=== PATIENT | male | born 1950 | race Caucasian/White ===

== ENCOUNTER 2017-11-26 17:23 | Inpatient (IN) ==
[2017-11-26] MEDS ORDERED: Morphine Inj 4 MG/ML Vial IV.PUSH ONE (17:36)
[2017-11-26 17:45] LABS: Baso # (Auto) 0.1 th/mm3 (0.0-0.2); Baso % (Auto) 1.6 % (0.0-2.0); Eos # (Auto) 0.1 th/mm3 (0.0-0.4); Eos % (Auto) 2.4 % (0.0-4.0); Hematocrit 48.1 % (39.0-51.0); Hemoglobin 16.6 gm/dL (13.0-17.0); Lymph # (Auto) 2.5 th/mm3 (1.0-4.8); Lymph % (Auto) 39.9 % (9.0-44.0); Mean Corpuscular HGB Conc 34.5 % (32.0-36.0); Mean Corpuscular Hemoglobin 32.6 pg (27.0-34.0); Mean Corpuscular Volume 94.5 fL (80.0-100.0); Mean Platelet Volume 9.4 fL (7.0-11.0); Mono # (Auto) 0.7 th/mm3 (0.0-0.9); Mono % (Auto) 11.2 % (0.0-8.0); Neut # (Auto) 2.8 th/mm3 (1.8-7.7); Neut % (Auto) 44.9 % (16.0-70.0); Platelet Count 202 th/mm3 (150-450); Red Blood Count 5.09 mil/mm3 (4.50-5.90); Red Cell Distribution Width 12.6 % (11.6-17.2); White Blood Count 6.2 th/mm3 (4.0-11.0)
--- NOTE | 2017-11-26 17:57 | XR ---
EXAM DATE: 11/26/2017 5:36 PM EDT AGE/SEX: 67 years / Male INDICATIONS: Chest pain and dyaphoresis with history of CABG. CLINICAL DATA: This is the patient's initial encounter. Patient reports that signs and symptoms have been present for 1 day and indicates a pain score of 9/10. MEDICAL/SURGICAL HISTORY: Cardiovascular disease. CABG. COMPARISON: [facility], CTA THORACIC ABDOMINAL AORTA W 3D RECON, 04/24/2017. . FINDINGS: Mild, diffuse chronic appearing interstitial opacities involving both lungs. No lobar consolidation. No pleural effusion. No pneumothorax. Heart size stable, mildly enlarged. Patient has had previous median sternotomy. Tortuous thoracic aor ta. CONCLUSION: No acute infiltrate seen. Mild, chronic appearing interstitial opacities and mild compensated cardiom egaly. Electronically signed by: Rocky Ambrose MD 11/26/2017 5:55 PM EDT
[2017-11-26 17:58] LABS: Chloride 106 meq/L (98-107); Potassium 3.4 meq/L (3.5-5.1); Sodium 145 meq/L (136-145)
[2017-11-26 18:02] LABS: Calcium 9.1 mg/dL (8.5-10.1)
[2017-11-26 18:03] LABS: Albumin 4.2 g/dL (3.4-5.0); Anion Gap 11 meq/L (5-15); Blood Urea Nitrogen 9 mg/dL (7-18); Carbon Dioxide 27.7 meq/L (21.0-32.0); Glucose,Random 88 mg/dL (74-106); Lipase 735 U/L (73-393)
[2017-11-26 18:04] LABS: Activated Partial Thrombo Time 25.2 sec (24.3-30.1); Prothrombin Time 10.4 sec (9.8-11.6)
[2017-11-26 18:05] LABS: Alanine Aminotransferase 32 U/L (12-78); Aspartate Aminotransferase 37 U/L (15-37)
[2017-11-26 18:06] LABS: Glomerular Filtration Rate 77 mL/min (>89)
[2017-11-26 18:07] LABS: Total Protein 8.3 g/dL (6.4-8.2)
[2017-11-26 18:08] LABS: Alkaline Phosphatase 68 U/L (45-117); Creatine Kinase 117 U/L (39-308)
[2017-11-26 18:21] LABS: Creatine Kinase MB 1.1 ng/mL (0.5-3.6)
[2017-11-26] MEDS ORDERED: Metoprolol Inj 5 MG/5 ML Vial IV.PUSH ONE ×2 (18:38→19:05)
--- NOTE | 2017-11-26 18:40 | ED ---
HPI General Chief complaint: Chest Pain Stated complaint: chest pain Time Seen by Provider: 11/26/17 17:30 Source: patient Mode of arrival: ambulatory Limitations: no limitations History of Present Illness HPI narrative: Patient is a 67-year-old male who comes in complaining of chest pain. Says the pain is in his upper abdomen and the left side. He says this started about 30 minutes prior to arrival. He was sitting at home when this started. He says he took a dose of nitro with some improvement of his symptoms. He says when the symptoms started, he felt a little short of breath. He denies nausea or vomiting. He has history of CABG and stenting. He denies any leg swelling or pain. Severity is moderate. Related Data Home Medications Medication Instructions Recorded Confirmed apixaban [Eliquis] 2.5 mg PO BID 09/05/17 11/26/17 aspirin [Aspir-81] 81 mg PO DAILY 11/26/17 11/26/17 carvedilol 3.125 mg PO BID 11/26/17 11/26/17 clopidogrel [Plavix] 75 mg PO DAILY 11/26/17 11/26/17 diltiazem HCl 120 mg PO DAILY 11/26/17 11/26/17 Allergies Allergy/AdvReac Type Severity Reaction Status Date / Time No Known Allergies Allergy Unknown NONE Uncoded 11/26/17 17:36 Review of Systems ROS: all other systems reviewed are negative Constitutional Denies chills and Denies fever(s) ENT Denies dizziness Cardiovascular Reports chest pain Respiratory Denies cough Gastrointestinal Denies nausea and Denies vomiting Musculoskeletal Denies myalgias and Denies arthralgias Integumentary/Breasts Denies rash and Denies wounds Neurologic Denies focal weakness and Denies numbness [facility] Medical History Medical History Bypass graft stenosis (Acute) Social History Social History Substance History: No History of Abuse Second Hand Smoke Exposure: No Smoking Status: Never smoker How Often Do You Have a Drink Containing Alcohol: 2 to 4 times a month Recent Out of Country Travel within the Last 8 Weeks: No Immunization History Tetanus Immunization: Unsure Hx Influenza Vaccine This Season: No Exam Narrative Exam Narrative: GENERAL: Awake and alert, no acute distress. SKIN: Diaphoretic, no evidence of wounds or infection. HEAD: Atraumatic. Normocephalic. EYES: Pupils equal and round. No scleral icterus. ENT: Mucous membranes pink and moist. NECK: Trachea midline. No JVD. CARDIOVASCULAR: Regular rate and rhythm. No murmur appreciated. RESPIRATORY: No accessory muscle use. Clear to auscultation. Breath sounds equal bilaterally. GASTROINTESTINAL: Abdomen soft, non-tender, nondistended. MUSCULOSKELETAL: No obvious deformities. No clubbing. No cyanosis. No edema. NEUROLOGICAL: Awake and alert. No obvious cranial nerve deficits. Motor grossly within normal limits. Normal speech. PSYCHIATRIC: Appropriate mood and affect; insight and judgment normal. Course Initial Documented Vital Signs Blood Pressure 181/108 H 11/26/17 17:30 Last Documented Vital Signs Temperature 97.7 F 11/26/17 17:34 Pulse Rate 87 11/26/17 18:26 Respiratory Rate 18 11/26/17 18:26 Blood Pressure 176/105 H 11/26/17 18:26 Pulse Oximetry 97 11/26/17 18:26 Medical Decision Making [facility] Narrative Medical decision making narrative: Patient is a 67-year-old male with extensive cardiac history, who comes in complaining of chest pain. IV established, labs sent. Patient connected to the threat monitoring analyst. Labs show an elevated lipase. First troponin is negative. Patient given morphine and aspirin. He is on Eliquis. He is not currently having any nausea or vomiting. Patient will be admitted for ACS rule out and management of elevated lipase. Medical Screen Exam Complete: Yes Emergency Medical Condition: Yes Differential Diagnosis Differential Diagnosis: ACS versus pancreatitis versus cholecystitis Medical Records Medical records reviewed: Yes I reviewed the patient's medical records. Lab Data Lab results reviewed: Yes I reviewed the patient's lab results. Result diagrams: 11/26/17 17:30 11/26/17 17:30 Lab Results 11/26/17 11/26/17 11/26/17 Range/Units 17:30 17:30 17:30 CBC w Diff Auto diff final WBC 6.2 (4.0-11.0) th/mm3 RBC 5.09 (4.50-5.90) mil/mm3 Hgb 16.6 (13.0-17.0) gm/dL Hct 48.1 (39.0-51.0) % MCV 94.5 (80.0-100.0) fL MCH 32.6 (27.0-34.0) pg MCHC 34.5 (32.0-36.0) % RDW 12.6 (11.6-17.2) % Plt Count 202 (150-450) th/mm3 MPV 9.4 (7.0-11.0) fL Neut % (Auto) 44.9 (16.0-70.0) % Lymph % (Auto) 39.9 (9.0-44.0) % [place] % (Auto) 11.2 H (0.0-8.0) % Eos % (Auto) 2.4 (0.0-4.0) % Baso % (Auto) 1.6 (0.0-2.0) % Neut # (Auto) 2.8 (1.8-7.7) th/mm3 Lymph # (Auto) 2.5 (1.0-4.8) th/mm3 [place] # (Auto) 0.7 (0.0-0.9) th/mm3 Eos # (Auto) 0.1 (0.0-0.4) th/mm3 Baso # (Auto) 0.1 (0.0-0.2) th/mm3 WBC Differential . Differential Comment . PT 10.4 (9.8-11.6) sec INR 1.0 Ratio APTT 25.2 (24.3-30.1) sec Sodium 145 (136-145) meq/L Potassium 3.4 L (3.5-5.1) meq/L Chloride 106 (98-107) meq/L Carbon Dioxide 27.7 (21.0-32.0) meq/L Anion Gap 11 (5-15) meq/L BUN 9 (7-18) mg/dL Creatinine 0.97 (0.60-1.30) mg/dL Estimated GFR 77 L (>89) mL/min Random Glucose 88 (74-106) mg/dL Calcium 9.1 (8.5-10.1) mg/dL Total Bilirubin 0.5 (0.2-1.0) mg/dL Direct Bilirubin 0.2 (0.0-0.2) mg/dL Indirect Bilirubin 0.3 (0.0-0.8) mg/dL AST 37 (15-37) U/L ALT 32 (12-78) U/L Alkaline Phosphatase 68 (45-117) U/L Total Creatine Kinase 117 (39-308) U/L CK-MB (CK-2) 1.1 (0.5-3.6) ng/mL Troponin I Less than 0.02 L (0.02-0.05) ng/mL B-Natriuretic Peptide (0-100) pg/mL Total Protein 8.3 H (6.4-8.2) g/dL Albumin 4.2 (3.4-5.0) g/dL Lipase 735 H (73-393) U/L 11/26/17 Range/Units 17:30 CBC w Diff WBC (4.0-11.0) th/mm3 RBC (4.50-5.90) mil/mm3 Hgb (13.0-17.0) gm/dL Hct (39.0-51.0) % MCV (80.0-100.0) fL MCH (27.0-34.0) pg MCHC (32.0-36.0) % RDW (11.6-17.2) % Plt Count (150-450) th/mm3 MPV (7.0-11.0) fL Neut % (Auto) (16.0-70.0) % Lymph % (Auto) (9.0-44.0) % [place] % (Auto) (0.0-8.0) % Eos % (Auto) (0.0-4.0) % Baso % (Auto) (0.0-2.0) % Neut # (Auto) (1.8-7.7) th/mm3 Lymph # (Auto) (1.0-4.8) th/mm3 [place] # (Auto) (0.0-0.9) th/mm3 Eos # (Auto) (0.0-0.4) th/mm3 Baso # (Auto) (0.0-0.2) th/mm3 WBC Differential Differential Comment PT (9.8-11.6) sec INR Ratio APTT (24.3-30.1) sec Sodium (136-145) meq/L Potassium (3.5-5.1) meq/L Chloride (98-107) meq/L Carbon Dioxide (21.0-32.0) meq/L Anion Gap (5-15) meq/L BUN (7-18) mg/dL Creatinine (0.60-1.30) mg/dL Estimated GFR (>89) mL/min Random Glucose (74-106) mg/dL Calcium (8.5-10.1) mg/dL Total Bilirubin (0.2-1.0) mg/dL Direct Bilirubin (0.0-0.2) mg/dL Indirect Bilirubin (0.0-0.8) mg/dL AST (15-37) U/L ALT (12-78) U/L Alkaline Phosphatase (45-117) U/L Total Creatine Kinase (39-308) U/L CK-MB (CK-2) (0.5-3.6) ng/mL Troponin I (0.02-0.05) ng/mL B-Natriuretic Peptide 103 H (0-100) pg/mL Total Protein (6.4-8.2) g/dL Albumin (3.4-5.0) g/dL Lipase (73-393) U/L Imaging Data Radiologist's impression: Chest X-Ray 11/26/17 17:36 CONCLUSION: No acute infiltrate seen. Mild, chronic appearing interstitial opacities and mild compensated cardiomegaly. ECG Data EKG Prior to Arrival: No Attestation: I personally reviewed and interpreted this ECG as follows: Interpretation: ECG shows atrial fibrillation at a rate of 93, no ST elevation or depression Discharge Plan Physicians Team ED Provider: Makeda Fan Primary Care Provider: UNKNOWN, Rxs /Orders / Referrals /Forms Prescriptions: No Action clopidogrel [Plavix] 75 mg Tablet 75 mg PO DAILY RF: 0 aspirin [Aspir-81] 81 mg Tablet,Delayed Release (Dr/Ec) 81 mg PO DAILY RF: 0 carvedilol 3.125 mg Tablet 3.125 mg PO BID RF: 0 diltiazem HCl 120 mg Tablet Extended Release 24 Hr 120 mg PO DAILY RF: 0 apixaban [Eliquis] 5 mg Tablet 2.5 mg PO BID RF: 0 Discharge Interventions Interventions: Vital Signs Last Done: 11/26/17 17:36 Status ED Status: Admitted Patient
[2017-11-26] MEDS ORDERED: Morphine Inj 4 MG/ML Vial IV.PUSH PRN ×2 (18:55)
[2017-11-26] MEDS: Sod Chloride 0.9% Inj 1,000 ML IV.CONT SCH (18:58)
[2017-11-26] MEDS ORDERED: hydrALAZINE HCl Inj 20 MG/ML Vial IV.PUSH ONE (21:18)
[2017-11-26 23:03] LABS: Creatine Kinase 98 U/L (39-308)
[2017-11-27] MEDS: Sod Chloride 0.9% Inj 1,000 ML IV.CONT SCH (07:00)
[2017-11-27 07:09] LABS: Baso % (Auto) 0.2 % (0.0-2.0); Eos % (Auto) 0.3 % (0.0-4.0); Hemoglobin 15.5 gm/dL (13.0-17.0); Lymph # (Auto) 0.5 th/mm3 (1.0-4.8); Mean Corpuscular HGB Conc 34.4 % (32.0-36.0); Mean Corpuscular Hemoglobin 32.5 pg (27.0-34.0); Mean Corpuscular Volume 94.6 fL (80.0-100.0); Mean Platelet Volume 9.8 fL (7.0-11.0); Mono # (Auto) 0.7 th/mm3 (0.0-0.9); Neut # (Auto) 9.1 th/mm3 (1.8-7.7); Neut % (Auto) 87.5 % (16.0-70.0); Platelet Count 164 th/mm3 (150-450); Red Blood Count 4.76 mil/mm3 (4.50-5.90); Red Cell Distribution Width 12.7 % (11.6-17.2); White Blood Count 10.3 th/mm3 (4.0-11.0)
[2017-11-27 07:26] LABS: Chloride 106 meq/L (98-107); Potassium 3.5 meq/L (3.5-5.1); Sodium 140 meq/L (136-145)
[2017-11-27 07:47] LABS: Alanine Aminotransferase 38 U/L (12-78); Albumin 3.6 g/dL (3.4-5.0); Alkaline Phosphatase 72 U/L (45-117); Anion Gap 10 meq/L (5-15); Aspartate Aminotransferase 32 U/L (15-37); Blood Urea Nitrogen 7 mg/dL (7-18); Calcium 8.1 mg/dL (8.5-10.1); Carbon Dioxide 23.6 meq/L (21.0-32.0); Glomerular Filtration Rate Greater Than 89 mL/min (>89); Glucose,Random 117 mg/dL (74-106); Lipase 159 U/L (73-393); Total Protein 7.1 g/dL (6.4-8.2)
[2017-11-27 07:52] LABS: Creatine Kinase 63 U/L (39-308)
[2017-11-27] MEDS ORDERED: dilTIAZem CD 120 MG Capsule PO SCH (09:00)
--- NOTE | 2017-11-27 09:35 | P.HP ---
History of Present Illness Primary Care Physician: UNKNOWN Chief Complaint: Chest pain History of Present Illness: This is a 67-year-old male patient with a known medical history of atrial fibrillation on Eliquis who presented to the ED with complaints of chest pain. Patient states that yesterday while at rest he developed a midepigastric abdominal pain that radiated to his left side. He states that the pain lasted roughly an hour and given IV morphine in the ED. He is unable to characterize the pain, just states that the pain is the worst pain is ever had in his life. He does have an extensive cardiac history with CABG as well as cardiac stents. He states that his last stress test was over 10 years ago. A cardiac catheterization is noted in March of this year and at that time post bare- metal stent to the proximal mid LAD. Has been on Eliquis as well as Plavix for history of cardiac stents and atrial fibrillation. It should be noted at that time of hospitalization in March of this year he also complained of abdominal pain. A gallbladder ultrasound as well as a HIDA scan was done, at that time a cholecystectomy deferred by general surgery. Patient denies any recent fevers, chills, cough, headache, shortness of breath, nausea, vomiting, diarrhea or dysuria. He does follow with Dr. Kim, cardiology in the outpatient setting, states that he has recently been been on Losartan but has been discontinued due to recall. - Diagnosis (1) Atypical chest pain Inpatient Certification: I certify that the inpatient services were ordered in accordance with Medicare regulations governing the order. This includes certification that hospital inpatient services are reasonable and necessary and in the case of services not specified as inpatient-only under 42 CFR 419.22(n), that they are appropriately provided as inpatient services in accordance to with the 2-midnight benchmark under 43 CFR 412.3(e) Estimated Total Length of Stay (Days): 3 Plans for Post Hospital Care: Home Review of Systems All other systems reviewed negative except as stated in HPI PMFSH - History History Provided By: Patient - Medical History Medical History: Medical History (Last Reviewed 11/27/17 @ 10:13 by Makeda Lopez) Bypass graft stenosis - Surgical History Surgical History: Surgical History (Last Reviewed 11/27/17 @ 10:13 by Makeda Lopez) Hx of CABG - Family History Family History: Family History (Last Updated 11/27/17 @ 10:13 by Makeda Lopez) Other Family history in first degree relatives is unremarkable - Tobacco History Second Hand Smoke Exposure: No Smoking Status: Never smoker - Alcohol History How Often Do You Have a Drink Containing Alcohol: 2 to 3 times a week - Substance Use History Substance History: No History of Abuse - Travel History Recent Travel Out of the Country Within the Last 8 Weeks: No - Immunization History Tetanus Immunization: Unsure Hx Influenza Vaccine This Season: No Medications and Allergies Active Medications: Active Medications Al Hydroxide/Mg Hydroxide (Milk Of [place]) 30 ml PO Q12H PRN PRN Reason: Mild Constipation Apixaban (Eliquis) 2.5 mg PO BID [facility] Aspirin (Aspirin) 325 mg PO DAILY [facility] Carvedilol (Coreg) 3.125 mg PO BID [facility] Clopidogrel Bisulfate (Plavix) 75 mg PO DAILY [facility] Diltiazem HCl (Cardizem Cd 24hr) 120 mg PO DAILY [facility] Sodium Chloride (Ns Inj) 1,000 mls @ 100 mls/hr IV.CONT .Q10H [facility] Last Admin: 11/27/17 07:00 Dose: 100 mls/hr Miscellaneous (Pill Splitter) 1 each OTHER UNSCH [facility] Last Admin: 11/26/17 21:09 Dose: 1 each Morphine Sulfate (Morphine Inj) 2 mg IV.PUSH Q4H PRN PRN Reason: Pain 3 to 6 Last Admin: 11/26/17 23:43 Dose: 2 mg Morphine Sulfate (Morphine Inj) 4 mg IV.PUSH Q4H PRN PRN Reason: Pain 7 to 10 Last Admin: 11/27/17 04:45 Dose: 4 mg Nitroglycerin (Nitrostat Sl) 0.4 mg SL Q5M PRN PRN Reason: CHEST PAIN Ondansetron HCl (Zofran Inj) 4 mg IV.PUSH Q6H PRN PRN Reason: NAUSEA OR VOMITING Sodium Chloride (Ns Flush) 2 ml IV.FLUSH UNSCH PRN PRN Reason: FLUSH AFTER USING IV ACCESS Last Admin: 11/26/17 17:44 Dose: 2 ml Allergies Allergy/AdvReac Type Severity Reaction Status Date / Time No Known Allergies Allergy Unknown NONE Uncoded 11/26/17 17:36 Home Medications Medication Instructions Recorded Confirmed Type apixaban [Eliquis] 2.5 mg PO BID 09/05/17 11/26/17 History aspirin [Aspir-81] 81 mg PO DAILY 11/26/17 11/26/17 History carvedilol 3.125 mg PO BID 11/26/17 11/26/17 History clopidogrel [Plavix] 75 mg PO DAILY 11/26/17 11/26/17 History diltiazem HCl 120 mg PO DAILY 11/26/17 11/26/17 History Exam Vital signs: Vital Signs 11/26/17 17:30 11/26/17 17:34 11/26/17 17:36 Temperature 97.7 F Pulse Rate 96 H 88 Respiratory Rate 18 18 Blood Pressure 181/108 H 181/108 H 165/100 H Pulse Oximetry 97 98 11/26/17 17:45 11/26/17 18:26 11/26/17 19:30 Temperature Pulse Rate 79 87 85 Respiratory Rate 18 18 16 Blood Pressure 159/112 H 176/105 H 174/115 H Pulse Oximetry 98 97 11/26/17 21:30 11/26/17 21:55 11/27/17 00:00 Temperature 96.2 F L Pulse Rate 93 H 85 92 H Respiratory Rate 16 16 18 Blood Pressure 187/98 H 151/110 H 152/94 H Pulse Oximetry 100 98 98 11/27/17 04:00 11/27/17 05:26 11/27/17 08:00 Temperature 100.7 F H 96.4 F L Pulse Rate 107 H 109 H 110 H Respiratory Rate 18 Blood Pressure 179/89 H 155/99 H Pulse Oximetry 96 Intake & Output 11/26/17 11/27/17 11/27/17 18:59 06:59 18:59 Intake Total 1000 / 1000 Balance 1000 / 1000 Weight 125.191 kg Intake: IV 1000 / 1000 NS Inj 1,000 ML @ 100 mls/hr IV 1000 / 1000 .CONT .Q10H [facility] Rx#:[id number] Other: # Voids 2 Narrative: GENERAL: Well-developed, well-nourished patient in NAD. SKIN: Warm and dry. No rash. HEAD: Normocephalic. Atraumatic. EYES: Pupils equal and round. No scleral icterus. No injection or drainage. ENT: No nasal bleeding or discharge. Mucous membranes pink and moist. NECK: Supple. Trachea midline. CARDIOVASCULAR: Regular rate and rhythm. S1, S2 noted. No murmur appreciated. No chest pain to palpation. RESPIRATORY: No accessory muscle use. Clear to auscultation. Breath sounds equal bilaterally. GASTROINTESTINAL: Abdomen soft, non-tender, nondistended. Normoactive bowel sounds x4. MUSCULOSKELETAL: No obvious deformities. Extremities without clubbing, cyanosis , or edema. NEUROLOGICAL: Awake and alert. No obvious cranial nerve deficits. Motor grossly within normal limits. 5/5 muscle strength in bilateral upper and lower extremities. Normal speech. PSYCHIATRIC: Appropriate mood and affect; insight and judgment normal. Results - Labs CBC & Chem 7: 11/27/17 06:02 11/27/17 06:02 Labs: Laboratory Results - last 24 hr 11/26/17 11/26/17 11/26/17 17:30 17:30 17:30 CBC w Diff Auto diff final WBC 6.2 RBC 5.09 Hgb 16.6 Hct 48.1 MCV 94.5 MCH 32.6 MCHC 34.5 RDW 12.6 Plt Count 202 MPV 9.4 Neut % (Auto) 44.9 Lymph % (Auto) 39.9 [place] % (Auto) 11.2 H Eos % (Auto) 2.4 Baso % (Auto) 1.6 Neut # (Auto) 2.8 Lymph # (Auto) 2.5 [place] # (Auto) 0.7 Eos # (Auto) 0.1 Baso # (Auto) 0.1 WBC Differential . Differential Comment . PT 10.4 INR 1.0 APTT 25.2 Sodium 145 Potassium 3.4 L Chloride 106 Carbon Dioxide 27.7 Anion Gap 11 BUN 9 Creatinine 0.97 Estimated GFR 77 L Random Glucose 88 Calcium 9.1 Total Bilirubin 0.5 Direct Bilirubin 0.2 Indirect Bilirubin 0.3 AST 37 ALT 32 Alkaline Phosphatase 68 Total Creatine Kinase 117 CK-MB (CK-2) 1.1 Troponin I Less than 0.02 L B-Natriuretic Peptide Total Protein 8.3 H Albumin 4.2 Lipase 735 H 11/26/17 11/26/17 11/27/17 17:30 22:42 06:02 CBC w Diff WBC RBC Hgb Hct MCV MCH MCHC RDW Plt Count MPV Neut % (Auto) Lymph % (Auto) [place] % (Auto) Eos % (Auto) Baso % (Auto) Neut # (Auto) Lymph # (Auto) [place] # (Auto) Eos # (Auto) Baso # (Auto) WBC Differential Differential Comment PT INR APTT Sodium 140 Potassium 3.5 Chloride 106 Carbon Dioxide 23.6 Anion Gap 10 BUN 7 Creatinine 0.70 Estimated GFR Greater than 89 Random Glucose 117 H Calcium 8.1 L D Total Bilirubin 1.1 H Direct Bilirubin Indirect Bilirubin AST 32 ALT 38 Alkaline Phosphatase 72 Total Creatine Kinase 98 63 CK-MB (CK-2) Troponin I Less than 0.02 L Less than 0.02 L B-Natriuretic Peptide 103 H Total Protein 7.1 D Albumin 3.6 D Lipase 159 11/27/17 06:02 CBC w Diff Auto diff final WBC 10.3 D RBC 4.76 Hgb 15.5 Hct 45.0 MCV 94.6 MCH 32.5 MCHC 34.4 RDW 12.7 Plt Count 164 MPV 9.8 Neut % (Auto) 87.5 H Lymph % (Auto) 5.0 L [place] % (Auto) 7.0 Eos % (Auto) 0.3 Baso % (Auto) 0.2 Neut # (Auto) 9.1 H Lymph # (Auto) 0.5 L [place] # (Auto) 0.7 Eos # (Auto) 0.0 Baso # (Auto) 0.0 WBC Differential . Differential Comment . PT INR APTT Sodium Potassium Chloride Carbon Dioxide Anion Gap BUN Creatinine Estimated GFR Random Glucose Calcium Total Bilirubin Direct Bilirubin Indirect Bilirubin AST ALT Alkaline Phosphatase Total Creatine Kinase CK-MB (CK-2) Troponin I B-Natriuretic Peptide Total Protein Albumin Lipase - Imaging Impressions Chest X-Ray 11/26/17 17:36 CONCLUSION: No acute infiltrate seen. Mild, chronic appearing interstitial opacities and mild compensated cardiomegaly. Caprini VTE Risk Assessment Caprini VTE Risk Assessment: Moderate/High Risk (score >= 2) Caprini Risk Assessment Model: Point Value = 1 Point Value = 2 Point Value = 3 Point Value = 5 Age 41-60 Minor surgery BMI > 25 kg/m2 Swollen legs Varicose veins or History of unexplained or recurrent spontaneous Oral contraceptives or hormone replacement Sepsis (< 1 month) Serious lung disease, including pneumonia (< 1 month) Abnormal pulmonary function Acute myocardial infarction Congestive heart failure (< 1 month) History of inflammatory bowel disease Medical patient at bed rest Age 61-74 Arthroscopic surgery Major open surgery (> 45 min) Laparoscopic surgery (> 45 min) Malignancy Confined to bed (> 72 hours) Immobilizing plaster cast Central venous access Age >= 75 History of VTE Family history of VTE Factor V Leiden Prothrombin [id number] Lupus anticoagulant Anticardiolipin antibodies Elevated serum homocysteine Heparin-induced thrombocytopenia Other congenital or acquired thrombophilia Stroke (< 1 month) Elective arthroplasty Hip, pelvis, or leg fracture Acute spinal cord injury (< 1 month) Prophylaxis Regimen: Total Risk Factor Score Risk Level Prophylaxis Regimen 0-1 Low Early ambulation 2 Moderate Order ONE of the following: *Sequential Compression Device (SCD) *Heparin 5000 units SQ BID 3-4 Higher Order ONE of the following medications: *Heparin 5000 units SQ TID *Enoxaparin/Lovenox 40 mg SQ daily (WT < 150 kg, CrCl > 30 mL/min) *Enoxaparin/Lovenox 30 mg SQ daily (WT < 150 kg, CrCl > 10-29 mL/min) *Enoxaparin/Lovenox 30 mg SQ BID (WT < 150 kg, CrCl > 30 mL/min) AND/OR *Sequential Compression Device (SCD) 5 or more Highest Order ONE of the following medications: *Heparin 5000 units SQ TID (Preferred with Epidurals) *Enoxaparin/Lovenox 40 mg SQ daily (WT < 150 kg, CrCl > 30 mL/min) *Enoxaparin/Lovenox 30 mg SQ daily (WT < 150 kg, CrCl > 10-29 mL/min) *Enoxaparin/Lovenox 30 mg SQ BID (WT < 150 kg, CrCl > 30 mL/min) AND *Sequential Compression Device (SCD) Assessment and Plan - Assessment (1) Atypical chest pain Code(s): R07.89 - Other chest pain Status: Acute - Plan This is a 67-year-old male patient with: Chest pain History of CABG and cardiac stent placement as well as atrial fibrillation -Patient presented with mid epigastric/midsternal chest pain relieved with nitroglycerin. -Serial EKGs and serial troponins have been ordered for ruling out ACS purposes. Serial troponins flat. -EKG reviewed showing controlled atrial fibrillation with some nonspecific ST changes. -Will continue home medications. Continue cardiac telemetry, monitor for any arrhythmias. -Was given aspirin in ED. -Chest pain has now resolved. -ACS has been ruled out with serial EKGs and serial troponins. Patient does have multiple risk factors including previous CABG and cardiac stents. -Patient will undergo a cardiac nuclear stress test to further rule out any ischemia. Further hospitalization and treatment plan will depend on nuclear imaging results. Abdominal pain Mildly elevated bilirubin -Patient presented with mild-abdominal pain. Bilirubin 1.1. -Patient did have previous abdominal pain and gallbladder workup earlier this year, although a cholecystectomy was deferred at that time. -Will order gallbladder ultrasound to further evaluate pain, pending. Follow results. -Continue IV fluids. Morphine IV available for pain. -Will keep n.p.o. for now. -Depending on gallbladder ultrasound results, general surgery may be consulted. SIRS -Patient meets criteria with a 100.7 temp overnight as well as tachycardia. No leukocytosis although WBC increased from 6.2 to 10.3 overnight with left shift. Source unknown at this time. -UA ordered and pending. CXR reviewed and showing no acute infiltrates. -Continue to monitor. CBC in am. DVT prophylaxis: SCDs. Samanthaquis.
[2017-11-27] MEDS: dilTIAZem CD 120 MG Capsule PO SCH (09:50)
[2017-11-27 10:27] LABS: Clarity,Urine Clear (Clear); Color,Urine Yellow (Yellw/Straw); Glucose,Urine (UA) Negative (Negative); Leukocyte Esterase,Urine Negative (Negative); Nitrite,Urine Negative (Negative); Specific Gravity,Urine 1.025 (1.002-1.035); Urobilinogen,Urine 0.2 mg/dL (Less than 2)
[2017-11-27 10:32] LABS: Bilirubin,Urine Negative (Negative); Ictotest,Urine Negative (Negative)
[2017-11-27 10:33] LABS: Mucus,Urine Few /lpf (Occasional); Squamous Epithelial Cell,Urine 0-5 /hpf (0-5)
[2017-11-27] MEDS ORDERED: Regadenoson Inj 0.4 MG/5 ML Syringe IV.PUSH ONE (11:02)
--- NOTE | 2017-11-27 11:07 | US ---
EXAM DATE: 11/27/2017 12:00 AM EDT AGE/SEX: 67 years / Male INDICATIONS: Right upper quadrant pain. CLINICAL DATA: This is the patient's subsequent encounter. Patient reports that signs and symptoms h ave been present for 1 day and indicates a pain score of 0/10. MEDICAL/SURGICAL HISTORY: . Atrial fibrillation on Eliquis. CABG. Cardiac stents. COMPARISON: [facility] [place] GALLBLADDER, 04/24/2017. . MEASUREMENTS: Liver:__ 16.2 cm. Common Bile Duct:__ 6mm. FINDINGS: Liver: The liver is mildly enlarged. Increased echotexture without focal lesion or ductal dilation. Portal Vein: Hepatopedal flow seen in portal vein. Common Duct: No intraluminal mass or stone visualized. Gallbladder: Sludge is noted within the lumen. Demonstrates no wall thickening or pericholecystic flu id. No stones visualized. Pancreas: Not well visualized. Right Kidney: Normal echotexture and cortical thickness. No mass or hydronephrosis. There are simple cyst within the mid pole measuring 1.5 x 1.4 x 1.5 cm and 1.1 x 1.2 x 1.1 cm. Other: None. CONCLUSION: 1. Gallbladder sludge. 2. Enlarged fatty liver. 3. Right renal cysts. 4. Poor visualization of the pancreas due to shadowing bowel gas. Electronically signed by: Kirill Latif MD 11/27/2017 11:06 AM EDT
--- NOTE | 2017-11-27 12:09 | NM ---
EXAM DATE: 11/27/2017 10:52 AM EDT AGE/SEX: 67 years / Male INDICATIONS:Angina. Atrial fibrillation Mid chest pain for one day. CLINICAL DATA: This is the patient's initial encounter. Patient reports that signs and symptoms have been present for 1 day and indicates a pain score of 5/10. MEDICAL/SURGICAL HISTORY: . CABG. COMPARISON: No prior exams available for comparison. No external comparison. DOSE: 11.0 mCi Tc 99m Myoview at rest 35.0 mCi [id number] at stress 0.4 mg Lexiscan STRESS SYMPTOMS: None. EJECTION FRACTION: 26 % TECHNIQUE: The patient underwent pharmacologic stress with infusion of prescribed dose. Continuous ECG tracing was monitored during stress. Gated SPECT imaging was performed after stress and conventi onal SPECT imaging was performed at rest. The examination was performed on a SPECT/CT scanner, both attenuation and non-corrected datasets were reviewed. FINDINGS: Distribution: The maximum perfused segment at stress is in the septal wall. Perfusion Study: There is a moderate to large predominantly fixed perfusion defect involving the in ferior septal wall and inferior wall with small area of reversibility along the inferior septal wall. Gated Study: There is dyskinesis in involving the septal wall. There is hypokinesis involving the ap ex. The ejection fraction is calculated at 26%. RISK CATEGORY: Intermediate (1-3 % Annual Mortality Rate) CONCLUSION: 1. Calculated ejection fraction of 26% with dyskinesis involving the septal wall and hypokinesis inv olving the apex. 2. Moderate to large predominantly fixed perfusion defect involving the inferior septum and inferior wall with small area of reversibility. Electronically signed by: Tonio Avendaño MD 11/27/2017 12:07 PM EDT
[2017-11-27] MEDS ORDERED: Sod Chloride 0.9% Inj 1,000 ML IV.CONT SCH (13:00)
[2017-11-27] MEDS: Acetaminophen 325 MG Tablet PO PRN ×2 (13:31→21:15)
[2017-11-27] MEDS ORDERED: Diatrizoate Meglum/Diatrizoate Sod Liq 9 ML UDC PO ONE (14:45)
--- NOTE | 2017-11-27 16:31 | TR ---
Date Performed: 11/27/2017 Time Performed: 11:13:23 DOCTOR: Cassi Patel DRUG LIST: CLINICAL HISTORY: ANGINA REASON FOR TEST: Angina REASON FOR ENDING: OBSERVATION: CONCLUSION: Lexiscan stress test was performed under standard four minute protocol. Radionuclid e was injected one minute prior to ending the test. No electrocardiographic abormalities were present to suggest ischemia. Nuclear imaging and interpretation are pending. COMMENTS: Lexiscan stress test was performed under standard four minute protocol. Radionuclide was injected one minute prior to ending the test. No electrocardiographic abormalities were present t o suggest ischemia. Nuclear imaging and interpretation are pending.
--- NOTE | 2017-11-27 18:01 | ECG ---
Date Performed: 11/26/2017 Time Performed: 22:47:40 PTAGE: 67 years EKG: ATRIAL FIBRILLATION INFERIOR MYOCARDIAL INFARCTION Since the previous tracing, no significa nt change noted ABNORMAL ECG PREVIOUS TRACING : 11/26/2017 17.25 DOCTOR: Cristhian Heard Interpretating Date/Time 11/27/2017 18:01:19
--- NOTE | 2017-11-27 18:01 | ECG ---
Date Performed: 11/26/2017 Time Performed: 17:25:46 PTAGE: 67 years EKG: ATRIAL FIBRILLATION INFERIOR MYOCARDIAL INFARCTION Compared to previous tracing, ventricula r response to the atrial fibrillation is slightly slower ABNORMAL ECG PREVIOUS TRACING : 04/27/2017 05.10 DOCTOR: Cristhian Heard Interpretating Date/Time 11/27/2017 18:01:03
--- NOTE | 2017-11-27 18:02 | CT ---
EXAM DATE: 11/27/2017 1:40 PM EDT AGE/SEX: 67 years / Male INDICATIONS: Mid Epigastric pain radiating to the left side. CLINICAL DATA: This is the patient's initial encounter. Patient reports that signs and symptoms have been present for 2 days and indicates a pain score of 4/10. MEDICAL/SURGICAL HISTORY: Cerebrovascular disease. Atrial fibrillation. Anticoagulant therapy. CABG. RADIATION DOSE: 23.43 CTDI (mGy) COMPARISON: [facility], CTA THORACIC ABDOMINAL AORTA W 3D RECON, 04/24/2017. . TECHNIQUE: Multiple contiguous axial images were obtained through the abdomen. Images were obtained using multiple row detector helical technique. Using automated exposure control and adjustment of the mA and/or kV according to patient size, radiation dose was kept as low as reasonably achievable to o btain optimal diagnostic quality images. DICOM format image data is available electronically for rev iew and comparison. FINDINGS: Liver measures 19 cm craniocaudal and is probably slightly fatty infiltrated. Noncontrast appearance of the spleen, pancreas and adrenal glands is within normal limits. The left kidney also appears norm al. There are several small hypodensities of the right kidney measuring up to 14 mm in size, probably cysts. No obstruction or acute inflammatory changes are seen of the gastrointestinal tract. The appendix is well-visualized, normal. No free fluid or free air. There is no lymphadenopathy. There is tortuosity and mild atherosclerosis of the abdominal aorta. No aortic aneurysm. 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 No infiltrate or effusion seen of the visualized lung bases. There is mild panchamber enlargement of the heart. Patient has had previous median sternotomy and CABG. No acute bony abnormalities are demon strated. CONCLUSION: 1. Mild hepatomegaly. 2. No obstruction or acute inflammatory changes. 3. 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 Follow-up noncontrast abdomen CT recommended in one year. Electronically signed by: Rocky Ambrose MD 11/27/2017 6:01 PM EDT
--- NOTE | 2017-11-27 18:03 | ECG ---
Date Performed: 11/27/2017 Time Performed: 04:37:50 PTAGE: 67 years EKG: ATRIAL FIBRILLATION WITH RAPID VENTRICULAR RESPONSE INFERIOR MYOCARDIAL INFARCTION Compared to previous tracing, ventricular response to atrial fibrillation is faster. Nonspecific changes are more prominent ABNORMAL ECG PREVIOUS TRACING : 11/26/2017 22.47 DOCTOR: Cristhian Heard Interpretating Date/Time 11/27/2017 18:02:07
[2017-11-27] MEDS: Aspirin 325 MG Tablet PO SCH (18:34)
[2017-11-28 06:58] LABS: Baso % (Auto) 0.3 % (0.0-2.0); Eos # (Auto) 0.1 th/mm3 (0.0-0.4); Hematocrit 43.4 % (39.0-51.0); Hemoglobin 14.9 gm/dL (13.0-17.0); Lymph # (Auto) 0.6 th/mm3 (1.0-4.8); Lymph % (Auto) 10.3 % (9.0-44.0); Mean Corpuscular HGB Conc 34.3 % (32.0-36.0); Mean Corpuscular Hemoglobin 32.6 pg (27.0-34.0); Mean Corpuscular Volume 95.1 fL (80.0-100.0); Mean Platelet Volume 9.5 fL (7.0-11.0); Mono # (Auto) 0.6 th/mm3 (0.0-0.9); Mono % (Auto) 9.3 % (0.0-8.0); Neut % (Auto) 78.1 % (16.0-70.0); Platelet Count 136 th/mm3 (150-450); Red Blood Count 4.57 mil/mm3 (4.50-5.90); Red Cell Distribution Width 12.5 % (11.6-17.2); White Blood Count 6.3 th/mm3 (4.0-11.0)
[2017-11-28 07:09] LABS: Chloride 105 meq/L (98-107); Potassium 3.4 meq/L (3.5-5.1); Sodium 139 meq/L (136-145)
[2017-11-28 07:13] LABS: Calcium 8.4 mg/dL (8.5-10.1)
[2017-11-28 07:14] LABS: Albumin 3.4 g/dL (3.4-5.0); Anion Gap 10 meq/L (5-15); Blood Urea Nitrogen 8 mg/dL (7-18); Carbon Dioxide 24.1 meq/L (21.0-32.0); Glucose,Random 94 mg/dL (74-106)
[2017-11-28 07:17] LABS: Alanine Aminotransferase 28 U/L (12-78); Aspartate Aminotransferase 20 U/L (15-37); Glomerular Filtration Rate Greater Than 89 mL/min (>89)
[2017-11-28 07:18] LABS: Total Protein 6.9 g/dL (6.4-8.2)
[2017-11-28 07:20] LABS: Alkaline Phosphatase 61 U/L (45-117)
[2017-11-28] MEDS: Aspirin 325 MG Tablet PO SCH (08:14)
[2017-11-28] MEDS: dilTIAZem CD 120 MG Capsule PO SCH (08:15)
[2017-11-28] MEDS: Lisinopril 10 MG Tablet PO SCH (08:24)
--- NOTE | 2017-11-28 08:58 | P.PNIM ---
Subjective Interval history: Follow up chest pain and abdominal pain. Patient seen and examined, lying in bed comfortably in no apparent distress. Denies any chest pain. Eating well without any nausea or vomiting. Awaiting cardiology input and ECHO this morning. Physical Exam Vital signs: Vital Signs 11/27/17 13:03 11/27/17 14:38 11/27/17 18:54 Temperature 100.3 F H 98.1 F 98.1 F Pulse Rate 100 H 86 Respiratory Rate 16 18 Blood Pressure 165/97 H 187/94 H Pulse Oximetry 95 97 11/27/17 20:00 11/27/17 23:45 11/28/17 00:00 Temperature 99.3 F 98.4 F 98.4 F Pulse Rate 98 H 95 H 95 H Respiratory Rate 18 18 18 Blood Pressure 178/110 H 169/105 H 169/105 H Pulse Oximetry 95 96 96 11/28/17 04:00 11/28/17 04:39 11/28/17 08:00 Temperature 99.8 F H 96.5 F L Pulse Rate 98 H 88 Respiratory Rate 18 18 Blood Pressure 138/100 H 138/100 H 158/94 H Pulse Oximetry 96 97 Intake & Output 11/27/17 11/28/17 11/28/17 18:59 06:59 18:59 Intake Total 600 / 600 250 / 250 Balance 600 / 600 250 / 250 Intake: IV 600 / 600 50 / 50 NS Inj 1,000 ML @ 42 mls/hr IV. 600 / 600 50 / 50 CONT .[id number] Rx#: [id number] Oral 200 / 200 Other: # Voids 2 Narrative: GENERAL: Well-developed, well-nourished patient in [facility]. SKIN: Warm and dry. No rash. HEAD: Normocephalic. Atraumatic. EYES: Pupils equal and round. No scleral icterus. No injection or drainage. ENT: No nasal bleeding or discharge. Mucous membranes pink and moist. NECK: Supple. Trachea midline. CARDIOVASCULAR: Regular rate and rhythm. S1, S2 noted. No murmur appreciated. No chest pain to palpation. RESPIRATORY: No accessory muscle use. Clear to auscultation. Breath sounds equal bilaterally. GASTROINTESTINAL: Abdomen soft, non-tender, nondistended. Normoactive bowel sounds x4. MUSCULOSKELETAL: No obvious deformities. Extremities without clubbing, cyanosis , or edema. NEUROLOGICAL: Awake and alert. No obvious cranial nerve deficits. Motor grossly within normal limits. 5/5 muscle strength in bilateral upper and lower extremities. Normal speech. PSYCHIATRIC: Appropriate mood and affect; insight and judgment normal. Results - Labs CBC & Chem 7: 11/28/17 05:55 11/28/17 05:55 Laboratory Results - last 24 hr 11/27/17 11/27/17 11/28/17 10:00 13:18 05:55 CBC w Diff Auto diff final WBC 6.3 RBC 4.57 Hgb 14.9 Hct 43.4 MCV 95.1 MCH 32.6 MCHC 34.3 RDW 12.5 Plt Count 136 L MPV 9.5 Neut % (Auto) 78.1 H Lymph % (Auto) 10.3 Prentiss % (Auto) 9.3 H Eos % (Auto) 2.0 Baso % (Auto) 0.3 Neut # (Auto) 5.0 Lymph # (Auto) 0.6 L [place]iss # (Auto) 0.6 Eos # (Auto) 0.1 Baso # (Auto) 0.0 WBC Differential . Differential Comment . Sodium Potassium Chloride Carbon Dioxide Anion Gap BUN Creatinine Estimated GFR Random Glucose Lactic Acid 1.4 Calcium Total Bilirubin AST ALT Alkaline Phosphatase Total Protein Albumin Ur Collection Type Clean catch Urine Color Yellow Urine Clarity Clear Urine pH 6.0 Ur Specific [place] 1.025 Urine Protein Negative Urine Glucose (UA) Negative Urine Ketones Negative Urine Occult Blood Moderate H Urine Nitrate Negative Urine Bilirubin Negative Urine Ictotest Negative Urine Urobilinogen 0.2 Ur Leukocyte Esterase Negative Urine RBC 4-15 H Ur Squamous Epith Cells 0-5 Urine Mucus Few H Micro UA Comment Culture not ind Ur Microscopic Review Microscopic reviewed Urine Culture Comments Culture not ind 11/28/17 05:55 CBC w Diff WBC RBC Hgb Hct MCV MCH MCHC RDW Plt Count MPV Neut % (Auto) Lymph % (Auto) [place]iss % (Auto) Eos % (Auto) Baso % (Auto) Neut # (Auto) Lymph # (Auto) Prentiss # (Auto) Eos # (Auto) Baso # (Auto) WBC Differential Differential Comment Sodium 139 Potassium 3.4 L Chloride 105 Carbon Dioxide 24.1 Anion Gap 10 BUN 8 Creatinine 0.74 Estimated GFR Greater than 89 Random Glucose 94 Lactic Acid Calcium 8.4 L Total Bilirubin 1.4 H AST 20 ALT 28 Alkaline Phosphatase 61 Total Protein 6.9 Albumin 3.4 Ur Collection Type Urine Color Urine Clarity Urine pH Ur Specific [place] Urine Protein Urine Glucose (UA) Urine Ketones Urine Occult Blood Urine Nitrate Urine Bilirubin Urine Ictotest Urine Urobilinogen Ur Leukocyte Esterase Urine RBC Ur Squamous Epith Cells Urine Mucus Micro UA Comment Ur Microscopic Review Urine Culture Comments - Imaging Impressions Abdomen/Pelvis CT 11/27/17 00:00 CONCLUSION: 1. Mild hepatomegaly. 2. No obstruction or acute inflammatory changes. 3. 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 Follow-up noncontrast abdomen CT recommended in one year. Gallbladder Ultrasound 11/27/17 00:00 CONCLUSION: 1. Gallbladder sludge. 2. Enlarged fatty liver. 3. Right renal cysts. 4. Poor visualization of the pancreas due to shadowing bowel gas. Myocardial Perfusion Scan Nuc Med 11/27/17 00:00 CONCLUSION: 1. Calculated ejection fraction of 26% with dyskinesis involving the septal wall and hypokinesis involving the apex. 2. Moderate to large predominantly fixed perfusion defect involving the inferior septum and inferior wall with small area of reversibility. Assessment and Plan - Assessment (1) Atypical chest pain Code(s): R07.89 - Other chest pain Status: Acute - Plan This is a 67-year-old male patient with: Chest pain. Resolved. History of CABG and cardiac stent placement as well as atrial fibrillation -Patient presented with mid epigastric/midsternal chest pain relieved with nitroglycerin. -Serial EKGs and serial troponins have been ordered for ruling out ACS purposes. Serial troponins flat. -EKG reviewed showing controlled atrial fibrillation with some nonspecific ST changes. -Will continue home medications. Continue cardiac telemetry, monitor for any arrhythmias. -Was given aspirin in ED. -Chest pain has now resolved. -ACS has been ruled out with serial EKGs and serial troponins. Patient does have multiple risk factors including previous CABG and cardiac stents. -Patient underwent a cardiac nuclear stress test which showed low EF 26% and small reversibility in inferior septum and inferior wall with fixed defect. -Cardiology consulted and pending input and recommendations. It is a possibility patient may need further work up with his gallbladder and will ultimately need cardiology clearance if needed, also recommendations regarding stopping antiplatelets for any needed procedure. -ECHO pending. Follow. Abdominal pain. resolved. Mildly elevated bilirubin -Patient presented with mild-abdominal pain. Bilirubin trending up. -Patient did have previous abdominal pain and gallbladder workup earlier this year, although a cholecystectomy was deferred at that time and recommendations for outpatient follow up. Patient has been lost to outpatient follow up and has not see a GI specialist. -Gallbladder US showing sludge. No stones. -Continue IV fluids. Morphine IV available for pain. Has not needed pain medication. -Tolerating PO intake well. Denies any abdominal pain. -Will obtain cardiology input and ultimately patient will need cardiology clearance if surgery is needed in the future as well as recommendations in stopping antiplatelets. At this time patient's cardiac takes precedence. -Supportive care. DVT prophylaxis: SCDs. Eliquis. Discharge Planning: Awaiting cardiology evaluation and ECHO.
[2017-11-28] MEDS: Acetaminophen 325 MG Tablet PO PRN (15:29)
--- NOTE | 2017-11-28 15:36 | ECHRPT ---
Indication: Heart Failure CONCLUSIONS Normal left ventricular size. Wall thickness is measured at the upper limits of normal. The left ventricular systolic function is severely reduced with an estimated ejection fraction in th e range of 30-35%. Trace mitral valve regurgitation. There is trace tricuspid valve regurgitation. The estimated pulmonary arterial pressure is 37 mmHg. BP: / HR: Rhythm: MEASUREMENTS (Male / Female) Normal Values Technical Quality:Technically difficult study 2D ECHO LV Diastolic Diameter PLAX 5.2 cm 4.2 - 5.9 / 3.9 - 5.3 cm LV Systolic Diameter PLAX 4.4 cm IVS Diastolic Thickness 1.1 cm 0.6 - 1.0 / 0.6 - 0.9 cm LVPW Diastolic Thickness 1.1 cm 0.6 - 1.0 / 0.6 - 0.9 cm LV Relative Wall Thickness 0.4 RV Internal Dim ED PLAX 3.4 cm LVOT Diameter 2.3 cm Aortic Root Diameter 3.1 cm LA Systolic Diameter LX 3.9 cm 3.0 - 4.0 / 2.7 - 3.8 cm M-MODE AV Cusp Separation MM 2.2 cm DOPPLER AV Peak Velocity 109.0 cm/s AV Peak Gradient 4.8 mmHg LVOT Peak Velocity 98.2 cm/s LVOT Peak Gradient 3.9 mmHg AV Area Cont Eq pk 3.7 cm Mitral E Point Velocity 90.3 cm/s Mitral A Point Velocity 45.4 cm/s Mitral E to A Ratio 2.0 LV E' Lateral Velocity 17.9 cm/s Mitral E to LV E' Lateral Ratio 5.0 LV E' Septal Velocity 11.1 cm/s Mitral E to LV E' Septal Ratio 8.1 TR Peak Velocity 260.0 cm/s TR Peak Gradient 27.0 mmHg Right Atrial Pressure 10.0 mmHg Pulmonary Artery Systolic Pressu 37.0 mmHg Right Ventricular Systolic Press 37.0 mmHg PV Peak Velocity 97.7 cm/s PV Peak Gradient 3.8 mmHg FINDINGS LEFT VENTRICLE Normal left ventricular size. Wall thickness is measured at the upper limits of normal. The left ventricular systolic function is severely reduced with an estimated ejection fraction in th e range of 30-35%. RIGHT VENTRICLE Normal right ventricular size and systolic function. LEFT ATRIUM The left atrial size is normal. RIGHT ATRIUM The right atrial size is normal. ATRIAL SEPTUM Normal atrial septal thickness without atrial level shunting by limited color doppler interrogation. AORTA The aortic root and proximal ascending aorta are normal in size on limited imaging. MITRAL VALVE Trace mitral valve regurgitation. AORTIC VALVE Trileaflet aortic valve. TRICUSPID VALVE There is trace tricuspid valve regurgitation. The estimated pulmonary arterial pressure is 37 mmHg. PULMONARY VALVE No pulmonary valve regurgitation or stenosis. VESSELS The inferior vena cava is normal in size. PERICARDIUM No pericardial effusion. Thom Sanchez MD, FACC, [facility] [place] (Electronically Signed) Final Date:28 November 2017 15:35
--- NOTE | 2017-11-28 16:31 | XR ---
EXAM DATE: 11/28/2017 3:38 PM EDT AGE/SEX: 67 years / Male INDICATIONS: Short of breath. CLINICAL DATA: This is the patient's subsequent encounter. Patient reports that signs and symptoms h ave been present for 4 - 6 days and indicates a pain score of 0/10. MEDICAL/SURGICAL HISTORY: Cardiovascular disease. CABG. COMPARISON: [facility], CHEST 1V SINGLE AP, 11/26/2017. . FINDINGS: A single AP view of the chest demonstrates the lungs to be symmetrically aerated without evidence of mass, infiltrate or effusion. Cardiomegaly and previous median sternotomy. Increase in pulmonary vasc ularity with interstitial densities. The cardiomediastinal contours are unremarkable. Osseous struc tures are intact. CONCLUSION: Cardiomegaly with previous CABG and increase in pulmonary vascularity/interstitial densities. No [facility]. Electronically signed by: Epifanio Bundy MD 11/28/2017 4:30 PM EDT
[2017-11-28] MEDS: Piperacil/Tazo 4.5 GM Premix 4.5 GM/100 ML BAG IV.SIG SCH (17:17)
[2017-11-28 21:08] LABS: Bilirubin,Urine Negative (Negative); Clarity,Urine Clear (Clear); Color,Urine Yellow (Yellw/Straw); Glucose,Urine (UA) Negative (Negative); Leukocyte Esterase,Urine Negative (Negative); Nitrite,Urine Negative (Negative)
[2017-11-28 21:17] LABS: RBC,Urine 0-3 /hpf (0-3); Squamous Epithelial Cell,Urine 0-5 /hpf (0-5); WBC,Urine 0-5 /hpf (0-5)
[2017-11-29] MEDS: Piperacil/Tazo 4.5 GM Premix 4.5 GM/100 ML BAG IV.SIG SCH ×5 (01:05→22:18)
[2017-11-29 07:09] LABS: Albumin 3.3 g/dL (3.4-5.0)
[2017-11-29 07:13] LABS: Total Protein 7.1 g/dL (6.4-8.2)
[2017-11-29] MEDS: dilTIAZem CD 120 MG Capsule PO SCH (08:10)
[2017-11-29] MEDS: Lisinopril 10 MG Tablet PO SCH (08:10)
[2017-11-29] MEDS: Aspirin 325 MG Tablet PO SCH (08:11)
--- NOTE | 2017-11-29 08:12 | P.PNIM ---
Subjective Interval history: Follow-up chest pain and abdominal pain. Patient seen and examined, lying in bed comfortably no apparent distress. Patient transferred to [facility] today to undergo cardiac cath with Dr. Sanchez. Patient denies any new acute events overnight, chest pain has resolved. Patient denies any abdominal pain. Denies any headache, shortness of breath, nausea, vomiting, diarrhea or dysuria. Patient is afebrile overnight. Chest x-ray reviewed showing no acute abnormality or expiration for fever. Repeat UA was negative for infection as well. Physical Exam Vital signs: Vital Signs 11/28/17 12:00 11/28/17 15:34 11/28/17 17:21 Temperature 96.8 F L 101.4 F H 96.9 F L Pulse Rate 74 83 Respiratory Rate 18 18 Blood Pressure 134/92 H 154/74 H Pulse Oximetry 96 96 11/28/17 20:00 11/29/17 00:00 11/29/17 04:00 Temperature 98.1 F 98.5 F 99.0 F Pulse Rate 92 H 95 H 91 H Respiratory Rate 18 18 18 Blood Pressure 165/98 H 140/89 171/97 H Pulse Oximetry 94 L 95 95 Intake & Output 11/28/17 11/29/17 11/29/17 18:59 06:59 18:59 Intake Total 1180 / 1180 1200 / 1200 Output Total 0 / 0 Balance 1180 / 1180 1200 / 1200 Weight 125 kg Intake: IV 100 / 100 200 / 200 Zosyn 4.5 GM Premix 4.5 gm In 100 / 100 200 / 200 100 ml @ 200 mls/hr IV.SIG Q6H [facility] Rx#:[id number] Oral 1080 / 1080 1000 / 1000 Output: Stool 0 / 0 Other: # Voids 4 2 Date of Last Bowel Movement 11/27/17 11/27/17 Narrative: GENERAL: Well-developed, well-nourished patient in [facility]. SKIN: Warm and dry. No rash. HEAD: Normocephalic. Atraumatic. EYES: Pupils equal and round. No scleral icterus. No injection or drainage. ENT: No nasal bleeding or discharge. Mucous membranes pink and moist. NECK: Supple. Trachea midline. CARDIOVASCULAR: Regular rate and rhythm. S1, S2 noted. No murmur appreciated. No chest pain to palpation. RESPIRATORY: No accessory muscle use. Clear to auscultation. Breath sounds equal bilaterally. GASTROINTESTINAL: Abdomen soft, non-tender, nondistended. Normoactive bowel sounds x4. MUSCULOSKELETAL: No obvious deformities. Extremities without clubbing, cyanosis , or edema. NEUROLOGICAL: Awake and alert. No obvious cranial nerve deficits. Motor grossly within normal limits. 5/5 muscle strength in bilateral upper and lower extremities. Normal speech. PSYCHIATRIC: Appropriate mood and affect; insight and judgment normal. Results - Labs CBC & Chem 7: 11/28/17 05:55 11/28/17 05:55 Laboratory Results - last 24 hr 11/28/17 11/29/17 20:45 05:55 Total Bilirubin 1.1 H Direct Bilirubin 0.3 H Indirect Bilirubin 0.8 AST 19 ALT 27 Alkaline Phosphatase 62 Total Protein 7.1 Albumin 3.3 L Urine Color Yellow Urine Clarity Clear Urine pH 7.0 Ur Specific [place] 1.010 Urine Protein Negative Urine Glucose (UA) Negative Urine Ketones Trace H Urine Occult Blood Small H Urine Nitrate Negative Urine Bilirubin Negative Urine Urobilinogen 2.0 H Ur Leukocyte Esterase Negative Urine RBC 0-3 Urine WBC 0-5 Ur Squamous Epith Cells 0-5 Micro UA Comment Culture not ind Ur Microscopic Review Microscopic reviewed Urine Culture Comments Culture not ind Microbiology 11/27/17 13:18 Blood - Peripheral Aerobic Blood Culture - Preliminary No growth in 1 day 11/27/17 13:18 Blood - Peripheral Anaerobic Blood Culture - Preliminary No growth in 1 day 11/27/17 13:18 Blood - Peripheral Aerobic Blood Culture - Preliminary No growth in 1 day 11/27/17 13:18 Blood - Peripheral Anaerobic Blood Culture - Preliminary No growth in 1 day - Imaging Impressions Chest X-Ray 11/28/17 15:38 CONCLUSION: Cardiomegaly with previous CABG and increase in pulmonary vascularity/ interstitial densities. No change. Assessment and Plan - Assessment (1) Atypical chest pain Code(s): R07.89 - Other chest pain Status: Acute - Plan This is a 67-year-old male patient with: Chest pain. Resolved. History of CABG and cardiac stent placement as well as atrial fibrillation Systolic heart failure not in exacerbation Hypertension -Patient presented with mid epigastric/midsternal chest pain relieved with nitroglycerin. -Serial EKGs and serial troponins have been ordered for ruling out ACS purposes. Serial troponins flat. -EKG reviewed showing controlled atrial fibrillation with some nonspecific ST changes. -Will continue home medications. Continue cardiac telemetry, monitor for any arrhythmias. -Was given aspirin in ED. -Chest pain has now resolved. -ACS has been ruled out with serial EKGs and serial troponins. Patient does have multiple risk factors including previous CABG and cardiac stents. -Patient underwent a cardiac nuclear stress test which showed low EF 26% and small reversibility in inferior septum and inferior wall with fixed defect. -Cardiology consulted, Dr. Sanchez has reviewed patient chart and recommending cardiac catheterization. Patient transferred to [facility] for procedure. -Echocardiogram obtained and reviewed, showing EF of 35-40%. This is a change in comparison to the echo done in March of this year. Follow cardiac cath. -Added lisinopril to regimen. Monitor blood pressure trends. Abdominal pain. resolved. Mildly elevated bilirubin, proving. -Patient presented with mild-abdominal pain. Bilirubin trend improving. -Patient did have previous abdominal pain and gallbladder workup earlier this year, although a cholecystectomy was deferred at that time and recommendations for outpatient follow up. Patient has been lost to outpatient follow up and has not see a GI specialist. -Gallbladder US showing sludge. No stones. -Continue IV fluids. Morphine IV available for pain. Has not needed pain medication. -Tolerating PO intake well. Denies any abdominal pain, nausea or vomiting. -Will obtain cardiology input and ultimately patient will need cardiology clearance if surgery is needed in the future as well as recommendations in stopping antiplatelets. At this time patient's cardiac takes precedence. -Supportive care. DVT prophylaxis: SCDs. Eliquis and Plavix was held this morning for cardiac cath. Continue per cardiology recommendations.
--- NOTE | 2017-11-29 20:19 | MB ---
cc: Thom Sanchez MD DATE: 11/29/2017 HISTORY OF PRESENT ILLNESS: Anmol is a very pleasant 67-year-old gentleman with history of coronary artery bypass graft procedure, also status post PCI by myself in 2018. I was out of network with his insurance; therefore, he did not followup with me in my office. He followed up with Dr. Kim. Dr. Kim was contacted. Dr. Kim declined to see the patient. We also notified his [place] office; Dr Kim's [place] office also declined to see the patient. Therefore, as I was promotions manager, I saw the patient. He had a high-risk nuclear stress test at [place]. He presented to the emergency room on 11/26/2017 complaining of chest pain in the upper abdomen and left side; this was what he had prior to his previous stents. Currently, he is resting comfortably, in no acute distress. Denies any fever, chills, cough, GI or bleeding, PND, orthopnea, syncope or dizziness. PAST MEDICAL HISTORY: Per history of present illness. SOCIAL HISTORY: Denies tobacco use. Drinks alcohol 2-4 times a month. ALLERGIES: NONE. MEDICATIONS: In the hospital: 1. Eliquis 2.5 b.i.d. 2. Aspirin 325 daily. 3. Carvedilol 3.125 b.i.d. 4. Plavix 75 daily. 5. Cardizem 120 daily. 6. Lisinopril 10 mg daily. 7. Piperacillin. 8. Tazobactam. PHYSICAL EXAMINATION: VITAL SIGNS: Blood pressure 163/112, pulse 96, temperature 98.1, respiratory rate 16. GENERAL: He is alert and oriented x 3, in no acute distress. NECK: Supple. No JVD. No bruit. CARDIOVASCULAR: S1, S2, no murmurs, rubs or gallops. LUNGS: Clear to auscultation bilaterally. ABDOMEN: Soft, nontender, nondistended, positive bowel sounds. EXTREMITIES: No lower extremity edema. DIAGNOSTIC DATA: Chest x-ray: No acute infiltrate seen. Mild chronic appearing interstitial opacities and mild compensated cardiomegaly. LABORATORY DATA: EKG: A fib at a rate of 93 beats per minute, inferior Q-waves. 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 Gallbladder ultrasound: Gallbladder sludge and large fatty liver. Right renal cyst poor reveals visualization of the pancreas due to shadowing and bowel gas. Nuclear myocardial perfusion study: Calculated ejection fraction 26% dyskinesis involving the septal wall and hypokinesis involving the apex, moderate to large predominantly fixed perfusion defect involving the inferior septum and inferior wall with a small area of reversibility. Intermediate risk, 1-3% percent annual mortality rate. Echocardiogram: EF 30-35%. PA systolic pressure 37 mmHg. Trace MR. LABORATORY DATA: White count 6.3, hemoglobin 14.9, hematocrit 43.4, platelet count 136. INR is 1.0. Sodium 139, potassium 3.4, chloride 105, bicarbonate 24.1, BUN and creatinine 0.74. Total bilirubin is 1.1. Troponin less than 0.02 x2. BNP is 103. INR is 1.0. Cardiac catheterization on 04/26/2017: LV pressure is 140/18, 19-40%. Posterior wall, inferior wall, inferior apical are severely hypokinetic. Right coronary artery is dominant. Mild diffuse disease the proximal segment 30% angiographically. Proximal PDA has a 95% stenosis. Vein graft to the right coronary artery is occluded at the ostium. Vein graft to OM1 and OM2, has a sequential graft and is widely patent. OM1 is a very small artery reference vessel diameter 1 mm. LLANOS to LAD is atretic and occluded in the mid to distal segment. Left main coronary artery has no significant disease angiographically. A 70% proximal stenosis in the lateral branch of the first obtuse marginal vessel. LAD transapical 75% mid stenosis, 50-60% sequential disease in the mid to distal segment and 60% in the distal. The patient underwent PCI of the right coronary artery. The patient had bare-metal stent placement to the proximal LAD from 75% to 0% with FRANKIE-3 flow. FINAL DIAGNOSES: 1. Unstable angina. 2. Cardiomyopathy. 3. Congestive heart failure. 4. 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 5. Atrial fibrillation. 6. Thrombocytopenia. 7. High risk myocardial perfusion study. 8. Hyperbilirubinemia. 9. Hypokalemia. DISCUSSION: At this point in time, the patient has a high risk presentation with new onset chest pain at rest with a high risk nuclear stress test female was read as intermediate risk based on the fact that he has an EF of 26% with a large fixed defect in the inferior septum inferior wall with mild reversibility. He actually meets the criteria for high risk myocardial perfusion study. 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 I explained to him that he is much higher risk for significant morbidity and mortality as he will not receive blood products. 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 MD VERÓNICA Apodaca/[email or web address]/[email or web address] , 06:23 PM , 06:39 PM
[2017-11-30] MEDS: Piperacil/Tazo 4.5 GM Premix 4.5 GM/100 ML BAG IV.SIG SCH (06:12)
--- NOTE | 2017-11-30 07:38 | P.PNIM ---
Subjective Interval history: f/u; chest pain in no acute distress. looks comfortable with no chest pain or sob. no new complaints. Physical Exam Vital signs: Vital Signs 11/29/17 08:00 11/29/17 10:00 11/29/17 11:00 Temperature 97.7 F Pulse Rate 106 H 84 93 H Respiratory Rate 16 Blood Pressure 162/99 H Pulse Oximetry 96 11/29/17 11:10 11/29/17 12:00 11/29/17 13:00 Temperature 97.9 F Pulse Rate 84 82 74 Respiratory Rate 16 Blood Pressure 157/100 H Pulse Oximetry 97 11/29/17 14:00 11/29/17 15:00 11/29/17 16:00 Temperature 98.1 F Pulse Rate 91 H 81 96 H Respiratory Rate 16 Blood Pressure 163/112 H Pulse Oximetry 98 11/29/17 17:00 11/29/17 18:00 11/29/17 19:00 Temperature 98.7 F Pulse Rate 93 H 90 95 H Respiratory Rate 16 Blood Pressure 151/110 H Pulse Oximetry 97 11/29/17 20:00 11/29/17 21:00 11/29/17 22:00 Temperature Pulse Rate 98 H 100 H 99 H Respiratory Rate Blood Pressure Pulse Oximetry 11/29/17 23:00 11/30/17 00:00 11/30/17 03:00 Temperature 98.7 F 98.6 F Pulse Rate 90 98 H 100 H Respiratory Rate 16 16 Blood Pressure 186/90 H 163/95 H Pulse Oximetry 96 97 11/30/17 06:22 Temperature Pulse Rate 90 Respiratory Rate Blood Pressure Pulse Oximetry Intake & Output 11/29/17 11/30/17 11/30/17 18:59 06:59 18:59 Intake Total 1400 / 1400 580 / 580 100 / 100 Output Total 950 / 950 1000 / 1000 Balance 450 / 450 -420 / -420 100 / 100 Weight 106 kg Intake: IV 200 / 200 100 / 100 100 / 100 Zosyn 4.5 GM Premix 4.5 gm In 200 / 200 100 / 100 100 / 100 100 ml @ 200 mls/hr IV.SIG Q6H SHIMON Rx#:[id number] Oral 1200 / 1200 480 / 480 Output: Urine 950 / 950 1000 / 1000 Stool 0 / 0 Other: # Voids 1 - Constitutional no acute distress - Routine Respiratory Exam Present: CTA bilaterally - Routine Cardiovascular Exam Present: irregularly irregular - Routine Abdominal Exam Present: soft - Routine Extremities Exam Comments: no pedal edema. - Routine Neurological Exam Present: alert, oriented X3 Results - Labs CBC & Chem 7: 11/28/17 05:55 11/28/17 05:55 Microbiology 11/27/17 13:18 Blood - Peripheral Aerobic Blood Culture - Preliminary No growth in 2 days 11/27/17 13:18 Blood - Peripheral Anaerobic Blood Culture - Preliminary No growth in 2 days 11/27/17 13:18 Blood - Peripheral Aerobic Blood Culture - Preliminary No growth in 2 days 11/27/17 13:18 Blood - Peripheral Anaerobic Blood Culture - Preliminary No growth in 2 days Assessment and Plan - Assessment (1) Atypical chest pain Code(s): R07.89 - Other chest pain Status: Acute - Plan Chest pain. Resolved. History of CABG and cardiac stent placement as well as atrial fibrillation Systolic heart failure not in exacerbation Hypertension -Patient presented with mid epigastric/midsternal chest pain relieved with nitroglycerin. -Serial EKGs and serial troponins have been ordered for ruling out ACS purposes. Serial troponins flat. -EKG reviewed showing controlled atrial fibrillation with some nonspecific ST changes. -Will continue home medications. Continue cardiac telemetry, monitor for any arrhythmias. -Patient underwent a cardiac nuclear stress test which showed low EF 26% and small reversibility in inferior septum and inferior wall with fixed defect. -Cardiology consulted, Dr. Sanchez has reviewed patient chart and recommending cardiac catheterization. -Echocardiogram obtained and reviewed, showing EF of 35-40%. This is a change in comparison to the echo done in March of this year. Follow cardiac cath. -Added lisinopril to regimen. Monitor blood pressure trends. Abdominal pain. resolved. -Patient presented with mild-abdominal pain. Bilirubin trend improving. -Patient did have previous abdominal pain and gallbladder workup earlier this year, although a cholecystectomy was deferred at that time and recommendations for outpatient follow up. Patient has been lost to outpatient follow up and has not see a GI specialist. -Gallbladder US showing sludge. No stones. -Continue IV fluids. Morphine IV available for pain. Has not needed pain medication. -Tolerating PO intake well. Denies any abdominal pain, nausea or vomiting. -Will obtain cardiology input and ultimately patient will need cardiology clearance if surgery is needed in the future as well as recommendations in stopping antiplatelets. At this time patient's cardiac takes precedence. -Supportive care. splenic artery aneurysm; f/u as outpatient. DVT prophylaxis: SCDs. Eliquis and Plavix was held this morning for cardiac cath. Continue per cardiology recommendations. Discharge Planning: awaiting cardiac cath and cardiology recommendations.
[2017-11-30] MEDS: Aspirin 325 MG Tablet PO SCH (08:19)
[2017-11-30] MEDS: dilTIAZem CD 120 MG Capsule PO SCH (08:19)
[2017-11-30] MEDS: Lisinopril 10 MG Tablet PO SCH (08:19)
--- NOTE | 2017-11-30 10:41 | P.PNCA ---
Subjective Interval history: alert in nad Medications and Allergies Active Medications: Active Medications Acetaminophen (Tylenol) 650 mg PO Q4H PRN PRN Reason: HEADACHE OR TEMP > 101 F Last Admin: 11/28/17 15:29 Dose: 650 mg Al Hydroxide/Mg Hydroxide (Milk Of Santiago Brown) 30 ml PO Q12H PRN PRN Reason: Mild Constipation Last Admin: 11/28/17 20:19 Dose: 30 ml Apixaban (Eliquis) 2.5 mg PO BID [facility] Last Admin: 11/29/17 08:11 Dose: Not Given Aspirin (Aspirin) 325 mg PO DAILY [facility] Last Admin: 11/30/17 08:19 Dose: 325 mg Carvedilol (Coreg) 3.125 mg PO BID [facility] Last Admin: 11/30/17 08:19 Dose: 3.125 mg Clopidogrel Bisulfate (Plavix) 75 mg PO DAILY [facility] Last Admin: 11/29/17 08:11 Dose: Not Given Diltiazem HCl (Cardizem Cd 24hr) 120 mg PO DAILY [facility] Last Admin: 11/30/17 08:19 Dose: 120 mg Lisinopril (Prinivil) 10 mg PO DAILY [facility] Last Admin: 11/30/17 08:19 Dose: 10 mg Miscellaneous (Pill Splitter) 1 each OTHER UNSCH [facility] Last Admin: 11/26/17 21:09 Dose: 1 each Morphine Sulfate (Morphine Inj) 2 mg IV.PUSH Q4H PRN PRN Reason: Pain 3 to 6 Last Admin: 11/26/17 23:43 Dose: 2 mg Nitroglycerin (Nitrostat Sl) 0.4 mg SL Q5M PRN PRN Reason: CHEST PAIN Ondansetron HCl (Zofran Inj) 4 mg IV.PUSH Q6H PRN PRN Reason: NAUSEA OR VOMITING Sodium Chloride (Ns Flush) 2 ml IV.FLUSH UNSCH PRN PRN Reason: FLUSH AFTER USING IV ACCESS Last Admin: 11/29/17 01:05 Dose: 2 ml Allergies Allergy/AdvReac Type Severity Reaction Status Date / Time No Known Allergies Allergy Unknown NONE Uncoded 11/26/17 17:36 Home Medications Medication Instructions Recorded Confirmed Type apixaban [Eliquis] 2.5 mg PO BID 09/05/17 11/26/17 History aspirin [Aspir-81] 81 mg PO DAILY 11/26/17 11/26/17 History carvedilol 3.125 mg PO BID 11/26/17 11/26/17 History clopidogrel [Plavix] 75 mg PO DAILY 11/26/17 11/26/17 History diltiazem HCl 120 mg PO DAILY 11/26/17 11/26/17 History Physical Exam Vital signs: Vital Signs 11/29/17 11:00 11/29/17 11:10 11/29/17 12:00 Temperature 97.9 F Pulse Rate 93 H 84 82 Respiratory Rate 16 Blood Pressure 157/100 H Pulse Oximetry 97 11/29/17 13:00 11/29/17 14:00 11/29/17 15:00 Temperature 98.1 F Pulse Rate 74 91 H 81 Respiratory Rate 16 Blood Pressure 163/112 H Pulse Oximetry 98 11/29/17 16:00 11/29/17 17:00 11/29/17 18:00 Temperature Pulse Rate 96 H 93 H 90 Respiratory Rate Blood Pressure Pulse Oximetry 11/29/17 19:00 11/29/17 20:00 11/29/17 21:00 Temperature 98.7 F Pulse Rate 95 H 98 H 100 H Respiratory Rate 16 Blood Pressure 151/110 H Pulse Oximetry 97 11/29/17 22:00 11/29/17 23:00 11/30/17 00:00 Temperature 98.7 F Pulse Rate 99 H 90 98 H Respiratory Rate 16 Blood Pressure 186/90 H Pulse Oximetry 96 11/30/17 03:00 11/30/17 06:22 11/30/17 07:00 Temperature 98.6 F 98.0 F Pulse Rate 100 H 90 86 Respiratory Rate 16 16 Blood Pressure 163/95 H 151/87 H Pulse Oximetry 97 97 11/30/17 08:00 11/30/17 09:00 11/30/17 10:00 Temperature Pulse Rate 96 H 91 H 92 H Respiratory Rate Blood Pressure Pulse Oximetry Intake & Output 11/29/17 11/30/17 11/30/17 18:59 06:59 18:59 Intake Total 1400 / 1400 580 / 580 100 / 100 Output Total 950 / 950 1000 / 1000 Balance 450 / 450 -420 / -420 100 / 100 Weight 106 kg Intake: IV 200 / 200 100 / 100 100 / 100 Zosyn 4.5 GM Premix 4.5 gm In 200 / 200 100 / 100 100 / 100 100 ml @ 200 mls/hr IV.SIG Q6H SHIMON Rx#:[id number] Oral 1200 / 1200 480 / 480 Output: Urine 950 / 950 1000 / 1000 Stool 0 / 0 Other: # Voids 1 Results 11/28/17 05:55 11/28/17 05:55 Cardiac Enzymes 11/29/17 Range/Units 05:55 AST 19 (15-37) U/L Comprehensive Metabolic Panel 11/29/17 Range/Units 05:55 Direct Bilirubin 0.3 H (0.0-0.2) mg/dL Indirect Bilirubin 0.8 (0.0-0.8) mg/dL AST 19 (15-37) U/L ALT 27 (12-78) U/L Alkaline Phosphatase 62 (45-117) U/L Total Protein 7.1 (6.4-8.2) g/dL Albumin 3.3 L (3.4-5.0) g/dL Intake and Output 11/29/17 11/30/17 11/30/17 22:59 06:59 14:59 Intake Total 1300 / 1300 580 / 580 100 / 100 Output Total 950 / 950 1000 / 1000 Balance 350 / 350 -420 / -420 100 / 100 Intake: IV 100 / 100 100 / 100 100 / 100 Zosyn 4.5 GM Premix 4.5 gm In 100 / 100 100 / 100 100 / 100 100 ml @ 200 mls/hr IV.SIG Q6H SHIMON Rx#:[id number] Oral 1200 / 1200 480 / 480 Output: Urine 950 / 950 1000 / 1000 Stool 0 / 0 Other: # Voids 1 Weight 106 kg - Imaging and Cardiology Imaging: Impressions Chest X-Ray 11/28/17 15:38 CONCLUSION: Cardiomegaly with previous CABG and increase in pulmonary vascularity/ interstitial densities. No change. Assessment and Plan - Assessment (1) Unstable angina Code(s): I20.0 - Unstable angina Status: Acute (2) CAD (coronary artery disease) Code(s): I25.10 - Atherosclerotic heart disease of [place] coronary artery without angina pectoris Status: Acute (3) Cardiomyopathy Code(s): I42.9 - Cardiomyopathy, unspecified Status: Acute (4) Atrial fibrillation Code(s): I48.91 - Unspecified atrial fibrillation Status: Acute - Plan 1.) CAD - hold levi quinonez 12/03/17, d/w patient and his 11/30/17
[2017-11-30] MEDS ORDERED: hydrALAZINE HCl Inj 20 MG/ML Vial IV.PUSH ONE (23:07)
[2017-12-01] MEDS ORDERED: Sodium Chloride 0.9% 2 ML Flush PRN IV.FLUSH (00:14)
[2017-12-01] MEDS ORDERED: hydrALAZINE HCl Inj 20 MG/ML Vial IV.PUSH ONE (00:26)
[2017-12-01] MEDS: Acetaminophen 325 MG Tablet PO PRN (04:14)
--- NOTE | 2017-12-01 07:44 | P.PNIM ---
Subjective Interval history: f/u; CAD in no acute distress. denies chest pain or sob. awaiting cardiac cath. Physical Exam Vital signs: Vital Signs 11/30/17 08:00 11/30/17 09:00 11/30/17 10:00 Temperature Pulse Rate 96 H 91 H 92 H Respiratory Rate Blood Pressure Pulse Oximetry 11/30/17 11:00 11/30/17 12:00 11/30/17 13:00 Temperature 98.2 F Pulse Rate 85 92 H 96 H Respiratory Rate 16 Blood Pressure 174/93 H Pulse Oximetry 97 11/30/17 14:00 11/30/17 15:00 11/30/17 16:00 Temperature 98.1 F Pulse Rate 96 H 86 96 H Respiratory Rate 16 Blood Pressure 158/108 H Pulse Oximetry 97 11/30/17 17:00 11/30/17 18:00 11/30/17 19:00 Temperature Pulse Rate 96 H 99 H 102 H Respiratory Rate 18 Blood Pressure 172/108 H Pulse Oximetry 97 11/30/17 20:00 11/30/17 21:00 11/30/17 22:00 Temperature Pulse Rate 102 H 98 H 96 H Respiratory Rate Blood Pressure Pulse Oximetry 11/30/17 23:00 12/01/17 00:00 12/01/17 01:00 Temperature 98.2 F Pulse Rate 94 H 98 H 108 H Respiratory Rate 18 Blood Pressure 171/104 H Pulse Oximetry 98 12/01/17 02:00 12/01/17 03:00 12/01/17 04:00 Temperature 98.7 F Pulse Rate 107 H 100 H 116 H Respiratory Rate 18 Blood Pressure 143/82 H Pulse Oximetry 97 12/01/17 05:00 12/01/17 05:07 12/01/17 06:00 Temperature Pulse Rate 97 H 96 H Respiratory Rate 18 Blood Pressure Pulse Oximetry Intake & Output 11/30/17 12/01/17 12/01/17 18:59 06:59 18:59 Intake Total 1600 / 1600 480 / 480 Output Total 1050 / 1050 Balance 550 / 550 480 / 480 Weight 105.5 kg Intake: IV 100 / 100 Zosyn 4.5 GM Premix 4.5 gm In 100 / 100 100 ml @ 200 mls/hr IV.SIG Q6H SHIMON Rx#:[id number] Oral 1500 / 1500 480 / 480 Output: Urine 1050 / 1050 Other: # Voids 1 - Constitutional no acute distress - Routine Respiratory Exam Present: CTA bilaterally - Routine Cardiovascular Exam Present: RRR - Routine Abdominal Exam Present: soft - Routine Extremities Exam Comments: no pedal edema. - Routine Neurological Exam Present: alert, oriented X3 Results - Labs CBC & Chem 7: 11/28/17 05:55 11/28/17 05:55 Microbiology 11/27/17 13:18 Blood - Peripheral Aerobic Blood Culture - Preliminary No growth in 3 days 11/27/17 13:18 Blood - Peripheral Anaerobic Blood Culture - Preliminary No growth in 3 days 11/27/17 13:18 Blood - Peripheral Aerobic Blood Culture - Preliminary No growth in 3 days 11/27/17 13:18 Blood - Peripheral Anaerobic Blood Culture - Preliminary No growth in 3 days Assessment and Plan - Assessment (1) Atypical chest pain Code(s): R07.89 - Other chest pain Status: Acute - Plan Chest pain. Resolved. History of CABG and cardiac stent placement as well as atrial fibrillation Systolic heart failure not in exacerbation Hypertension -Patient presented with mid epigastric/midsternal chest pain relieved with nitroglycerin. -Serial EKGs and serial troponin have been ordered for ruling out ACS purposes. -EKG reviewed showing controlled atrial fibrillation with some nonspecific ST changes. -Will continue home medications. Continue cardiac telemetry, monitor for any arrhythmias. -Patient underwent a cardiac nuclear stress test which showed low EF 26% and small reversibility in inferior septum and inferior wall with fixed defect. -Cardiology consulted, Dr. Sanchez has reviewed patient chart and recommending cardiac catheterization. -Echocardiogram obtained and reviewed, showing EF of 35-40%. This is a change in comparison to the echo done in March of this year. Follow cardiac cath. -Added lisinopril to regimen. Monitor blood pressure trends. Abdominal pain. resolved. -Patient presented with mild-abdominal pain. Bilirubin trend improving. -Patient did have previous abdominal pain and gallbladder workup earlier this year, although a cholecystectomy was deferred at that time and recommendations for outpatient follow up. Patient has been lost to outpatient follow up and has not see a GI specialist. -Gallbladder US showing sludge. No stones. - Morphine IV available for pain. Has not needed pain medication. -Tolerating PO intake well. Denies any abdominal pain, nausea or vomiting. -Will obtain cardiology input and ultimately patient will need cardiology clearance if surgery is needed in the future as well as recommendations in stopping antiplatelets. At this time patient's cardiac takes precedence. -Supportive care. splenic artery aneurysm; f/u as outpatient. DVT prophylaxis: SCDs. Eliquis and Plavix was held this morning for cardiac cath. Continue per cardiology recommendations. Discharge Planning: cardiac cath on Sunday-
[2017-12-01] MEDS: dilTIAZem CD 120 MG Capsule PO SCH (08:01)
[2017-12-01] MEDS: Lisinopril 10 MG Tablet PO SCH (08:01)
[2017-12-01] MEDS: Aspirin 325 MG Tablet PO SCH (08:01)
[2017-12-01] MEDS: Sodium Chloride 0.9% 2 ML Flush BID IV.FLUSH SCH ×2 (08:01→20:37)
--- NOTE | 2017-12-01 10:55 | P.PNCA ---
Subjective Interval history: assymptomatic, in nad Medications and Allergies Active Medications: Active Medications Acetaminophen (Tylenol) 650 mg PO Q4H PRN PRN Reason: HEADACHE OR TEMP > 101 F Last Admin: 12/01/17 04:14 Dose: 650 mg Al Hydroxide/Mg Hydroxide (Milk Of [place]) 30 ml PO Q12H PRN PRN Reason: Mild Constipation Last Admin: 11/28/17 20:19 Dose: 30 ml Apixaban (Eliquis) 2.5 mg PO BID [facility] Last Admin: 11/29/17 08:11 Dose: Not Given Aspirin (Aspirin) 325 mg PO DAILY [facility] Last Admin: 12/01/17 08:01 Dose: 325 mg Carvedilol (Coreg) 3.125 mg PO BID [facility] Last Admin: 12/01/17 08:01 Dose: 3.125 mg Clopidogrel Bisulfate (Plavix) 75 mg PO DAILY [facility] Last Admin: 11/29/17 08:11 Dose: Not Given Diltiazem HCl (Cardizem Cd 24hr) 120 mg PO DAILY [facility] Last Admin: 12/01/17 08:01 Dose: 120 mg Lisinopril (Prinivil) 10 mg PO DAILY [facility] Last Admin: 12/01/17 08:01 Dose: 10 mg Miscellaneous (Pill Splitter) 1 each OTHER UNSCH [facility] Last Admin: 11/26/17 21:09 Dose: 1 each Morphine Sulfate (Morphine Inj) 2 mg IV.PUSH Q4H PRN PRN Reason: Pain 3 to 6 Last Admin: 11/26/17 23:43 Dose: 2 mg Nitroglycerin (Nitrostat Sl) 0.4 mg SL Q5M PRN PRN Reason: CHEST PAIN Ondansetron HCl (Zofran Inj) 4 mg IV.PUSH Q6H PRN PRN Reason: NAUSEA OR VOMITING Sodium Chloride (Ns Flush) 2 ml IV.FLUSH BID [facility] Last Admin: 12/01/17 08:01 Dose: 2 ml Sodium Chloride (Ns Flush) 2 ml IV.FLUSH PRN PRN PRN Reason: FLUSH AFTER USING IV ACCESS Allergies Allergy/AdvReac Type Severity Reaction Status Date / Time No Known Allergies Allergy Unknown NONE Uncoded 11/26/17 17:36 Home Medications Medication Instructions Recorded Confirmed Type apixaban [Eliquis] 2.5 mg PO BID 09/05/17 11/26/17 History aspirin [Aspir-81] 81 mg PO DAILY 11/26/17 11/26/17 History carvedilol 3.125 mg PO BID 11/26/17 11/26/17 History clopidogrel [Plavix] 75 mg PO DAILY 11/26/17 11/26/17 History diltiazem HCl 120 mg PO DAILY 11/26/17 11/26/17 History Physical Exam Vital signs: Vital Signs 11/30/17 11:00 11/30/17 12:00 11/30/17 13:00 Temperature 98.2 F Pulse Rate 85 92 H 96 H Respiratory Rate 16 Blood Pressure 174/93 H Pulse Oximetry 97 11/30/17 14:00 11/30/17 15:00 11/30/17 16:00 Temperature 98.1 F Pulse Rate 96 H 86 96 H Respiratory Rate 16 Blood Pressure 158/108 H Pulse Oximetry 97 11/30/17 17:00 11/30/17 18:00 11/30/17 19:00 Temperature Pulse Rate 96 H 99 H 102 H Respiratory Rate 18 Blood Pressure 172/108 H Pulse Oximetry 97 11/30/17 20:00 11/30/17 21:00 11/30/17 22:00 Temperature Pulse Rate 102 H 98 H 96 H Respiratory Rate Blood Pressure Pulse Oximetry 11/30/17 23:00 12/01/17 00:00 12/01/17 01:00 Temperature 98.2 F Pulse Rate 94 H 98 H 108 H Respiratory Rate 18 Blood Pressure 171/104 H Pulse Oximetry 98 12/01/17 02:00 12/01/17 03:00 12/01/17 04:00 Temperature 98.7 F Pulse Rate 107 H 100 H 116 H Respiratory Rate 18 Blood Pressure 143/82 H Pulse Oximetry 97 12/01/17 05:00 12/01/17 05:07 12/01/17 06:00 Temperature Pulse Rate 97 H 96 H Respiratory Rate 18 Blood Pressure Pulse Oximetry 12/01/17 07:00 12/01/17 08:00 12/01/17 09:00 Temperature 98.1 F Pulse Rate 102 H 103 H 103 H Respiratory Rate 18 Blood Pressure 139/93 H Pulse Oximetry 97 12/01/17 10:00 Temperature Pulse Rate 94 H Respiratory Rate Blood Pressure Pulse Oximetry Intake & Output 11/30/17 12/01/1712/01/18 18:59 06:59 18:59 Intake Total 1600 / 1600 480 / 480 Output Total 1050 / 1050 Balance 550 / 550 480 / 480 Weight 105.5 kg Intake: IV 100 / 100 Zosyn 4.5 GM Premix 4.5 gm In 100 / 100 100 ml @ 200 mls/hr IV.SIG Q6H SHIMON Rx#:[id number] Oral 1500 / 1500 480 / 480 Output: Urine 1050 / 1050 Other: # Voids 1 - Routine Neck Exam Present: supple - Routine Respiratory Exam Present: CTA bilaterally - Routine Cardiovascular Exam Present: S1, S2 - Routine Abdominal Exam Present: soft - Routine Extremities Exam Comments: no jose enrique - Routine Neurological Exam Present: alert, oriented X3 Results 11/28/17 05:55 11/28/17 05:55 Intake and Output 11/30/17 12/01/17 12/01/17 22:59 06:59 14:59 Intake Total 1500 / 1500 480 / 480 Output Total 1050 / 1050 Balance 450 / 450 480 / 480 Intake: Oral 1500 / 1500 480 / 480 Output: Urine 1050 / 1050 Other: # Voids 1 Weight 105.5 kg Assessment and Plan - Assessment (1) Unstable angina Code(s): I20.0 - Unstable angina Status: Acute (2) CAD (coronary artery disease) Code(s): I25.10 - Atherosclerotic heart disease of [place] coronary artery without angina pectoris Status: Acute (3) Cardiomyopathy Code(s): I42.9 - Cardiomyopathy, unspecified Status: Acute (4) Atrial fibrillation Code(s): I48.91 - Unspecified atrial fibrillation Status: Acute - Plan 1.) CAD - hold levi quinonez 12/03/17, d/w patient and his 11/30/17
[2017-12-02 04:55] LABS: Chol/HDL Ratio 6.6 Ratio; HDL Cholesterol 27.7 mg/dL (40.0-60.0)
--- NOTE | 2017-12-02 07:44 | P.PNIM ---
Subjective Interval history: f/u; CAD in no acute distress. had some swollen lips which started yesterday evening. denies any sob or wheezing. d/w the RN. Physical Exam Vital signs: Vital Signs 12/01/17 08:00 12/01/17 09:00 12/01/17 10:00 Temperature Pulse Rate 103 H 103 H 94 H Respiratory Rate Blood Pressure Pulse Oximetry 12/01/17 11:00 12/01/17 11:23 12/01/17 13:00 Temperature 98.2 F Pulse Rate 92 H 98 H 84 Respiratory Rate 18 Blood Pressure 115/74 Pulse Oximetry 97 12/01/17 14:00 12/01/17 15:00 12/01/17 15:42 Temperature 98.0 F Pulse Rate 92 H 82 93 H Respiratory Rate 18 Blood Pressure 138/85 Pulse Oximetry 95 12/01/17 16:51 12/01/17 17:52 12/01/17 19:00 Temperature 98.0 F Pulse Rate 80 112 H 101 H Respiratory Rate 18 Blood Pressure 147/100 H Pulse Oximetry 96 12/01/17 20:00 12/01/17 21:00 12/01/17 22:00 Temperature Pulse Rate 90 88 86 Respiratory Rate Blood Pressure Pulse Oximetry 12/01/17 23:00 12/02/17 00:00 12/02/17 01:00 Temperature 98.5 F Pulse Rate 90 84 92 H Respiratory Rate 18 Blood Pressure 143/77 H Pulse Oximetry 96 12/02/17 02:00 12/02/17 03:00 12/02/17 04:00 Temperature 98.1 F Pulse Rate 88 92 H 94 H Respiratory Rate 18 Blood Pressure 144/95 H Pulse Oximetry 97 12/02/17 05:00 12/02/17 06:00 Temperature Pulse Rate 98 H 95 H Respiratory Rate Blood Pressure Pulse Oximetry Intake & Output 12/01/17 12/02/17 12/02/17 18:59 06:59 18:59 Intake Total 480 / 480 480 / 480 Output Total 1250 / 1250 700 / 700 Balance -770 / -770 -220 / -220 Weight 105.5 kg Intake: Oral 480 / 480 480 / 480 Output: Urine 1250 / 1250 700 / 700 Other: Date of Last Bowel Movement 12/01/17 # Bowel Movements 1 - Constitutional no acute distress - Routine HEENT Exam Head: Present: facial swelling (swollen lips.) - Routine Respiratory Exam Present: CTA bilaterally - Routine Cardiovascular Exam Present: RRR - Routine Abdominal Exam Present: soft - Routine Extremities Exam Comments: no pedal edema. - Routine Neurological Exam Present: alert, oriented X3 Results - Labs CBC & Chem 7: 11/28/17 05:55 11/28/17 05:55 Laboratory Results - last 24 hr 12/02/17 03:27 Triglycerides 100 Cholesterol 183 LDL Cholesterol, Calc 135 H HDL Cholesterol 27.7 L Cholesterol/HDL Ratio 6.60 Microbiology 11/27/17 13:18 Blood - Peripheral Aerobic Blood Culture - Preliminary No growth in 4 days 11/27/17 13:18 Blood - Peripheral Anaerobic Blood Culture - Preliminary No growth in 4 days 11/27/17 13:18 Blood - Peripheral Aerobic Blood Culture - Preliminary No growth in 4 days 11/27/17 13:18 Blood - Peripheral Anaerobic Blood Culture - Preliminary No growth in 4 days Assessment and Plan - Assessment (1) Atypical chest pain Code(s): R07.89 - Other chest pain Status: Acute - Plan Chest pain. Resolved. History of CABG and cardiac stent placement as well as atrial fibrillation Systolic heart failure not in exacerbation Hypertension -Patient presented with mid epigastric/midsternal chest pain relieved with nitroglycerin. -Serial EKGs and serial troponin have been ordered for ruling out ACS purposes. -EKG reviewed showing controlled atrial fibrillation with some nonspecific ST changes. -Will continue home medications. Continue cardiac telemetry, monitor for any arrhythmias. -Patient underwent a cardiac nuclear stress test which showed low EF 26% and small reversibility in inferior septum and inferior wall with fixed defect. -Cardiology consulted, Dr. Sanchez has reviewed patient chart and recommending cardiac catheterization. -Echocardiogram obtained and reviewed, showing EF of 35-40%. This is a change in comparison to the echo done in March of this year. Follow cardiac cath. -stopped lisinopril due to swollen lips swollen lips- no wheezing on exam and looks comfortable otherwise stopped lisinopril- will continue Benadryl and will add IV Solumedrol- continue to monitor. Abdominal pain. resolved. -Patient presented with mild-abdominal pain. Bilirubin trend improving. -Patient did have previous abdominal pain and gallbladder workup earlier this year, although a cholecystectomy was deferred at that time and recommendations for outpatient follow up. Patient has been lost to outpatient follow up and has not see a GI specialist. -Gallbladder US showing sludge. No stones. - Morphine IV available for pain. Has not needed pain medication. -Tolerating PO intake well. Denies any abdominal pain, nausea or vomiting. -Will obtain cardiology input and ultimately patient will need cardiology clearance if surgery is needed in the future as well as recommendations in stopping antiplatelets. At this time patient's cardiac takes precedence. -Supportive care. splenic artery aneurysm; f/u as outpatient. DVT prophylaxis: SCDs. Eliquis and Plavix was held this morning for cardiac cath. Continue per cardiology recommendations. Discharge Planning: cardiac cath on Sunday-
[2017-12-02] MEDS: Aspirin 325 MG Tablet PO SCH (08:08)
[2017-12-02] MEDS: MethylPREDNISolone Sod Succinate Inj 40 MG/ML Vial IV.PUSH SCH ×2 (08:08→19:46)
[2017-12-02] MEDS: dilTIAZem CD 120 MG Capsule PO SCH (08:08)
[2017-12-02] MEDS: Sodium Chloride 0.9% 2 ML Flush BID IV.FLUSH SCH ×2 (08:08→21:55)
--- NOTE | 2017-12-02 11:42 | P.PNCA ---
Subjective Interval history: assymptomatic in nad Medications and Allergies Active Medications: Active Medications Acetaminophen (Tylenol) 650 mg PO Q4H PRN PRN Reason: HEADACHE OR TEMP > 101 F Last Admin: 12/01/17 04:14 Dose: 650 mg Al Hydroxide/Mg Hydroxide (Milk Of [place] Brown) 30 ml PO Q12H PRN PRN Reason: Mild Constipation Last Admin: 11/28/17 20:19 Dose: 30 ml Apixaban (Eliquis) 2.5 mg PO BID [facility] Last Admin: 11/29/17 08:11 Dose: Not Given Aspirin (Aspirin) 325 mg PO DAILY [facility] Last Admin: 12/02/17 08:08 Dose: 325 mg Carvedilol (Coreg) 3.125 mg PO BID [facility] Last Admin: 12/02/17 08:08 Dose: 3.125 mg Clopidogrel Bisulfate (Plavix) 75 mg PO DAILY [facility] Last Admin: 11/29/17 08:11 Dose: Not Given Diltiazem HCl (Cardizem Cd 24hr) 120 mg PO DAILY [facility] Last Admin: 12/02/17 08:08 Dose: 120 mg Diphenhydramine HCl (Benadryl) 25 mg PO Q6H [facility] Last Admin: 12/02/17 05:39 Dose: 25 mg Methylprednisolone Sodium Succinate (Solumedrol Inj) 40 mg IV.PUSH Q12H [facility] Last Admin: 12/02/17 08:08 Dose: 40 mg Miscellaneous (Pill Splitter) 1 each OTHER UNSCH [facility] Last Admin: 11/26/17 21:09 Dose: 1 each Morphine Sulfate (Morphine Inj) 2 mg IV.PUSH Q4H PRN PRN Reason: Pain 3 to 6 Last Admin: 11/26/17 23:43 Dose: 2 mg Nitroglycerin (Nitrostat Sl) 0.4 mg SL Q5M PRN PRN Reason: CHEST PAIN Ondansetron HCl (Zofran Inj) 4 mg IV.PUSH Q6H PRN PRN Reason: NAUSEA OR VOMITING Sodium Chloride (Ns Flush) 2 ml IV.FLUSH BID [facility] Last Admin: 12/02/17 08:08 Dose: 2 ml Sodium Chloride (Ns Flush) 2 ml IV.FLUSH PRN PRN PRN Reason: FLUSH AFTER USING IV ACCESS Allergies Allergy/AdvReac Type Severity Reaction Status Date / Time No Known Allergies Allergy Unknown NONE Uncoded 11/26/17 17:36 Home Medications Medication Instructions Recorded Confirmed Type apixaban [Eliquis] 2.5 mg PO BID 09/05/17 11/26/17 History aspirin [Aspir-81] 81 mg PO DAILY 11/26/17 11/26/17 History carvedilol 3.125 mg PO BID 11/26/17 11/26/17 History clopidogrel [Plavix] 75 mg PO DAILY 11/26/17 11/26/17 History diltiazem HCl 120 mg PO DAILY 11/26/17 11/26/17 History Physical Exam Vital signs: Vital Signs 12/01/17 13:00 12/01/17 14:00 12/01/17 15:00 Temperature 98.0 F Pulse Rate 84 92 H 82 Respiratory Rate 18 Blood Pressure 138/85 Pulse Oximetry 95 12/01/17 15:42 12/01/17 16:51 12/01/17 17:52 Temperature Pulse Rate 93 H 80 112 H Respiratory Rate Blood Pressure Pulse Oximetry 12/01/17 19:00 12/01/17 20:00 12/01/17 21:00 Temperature 98.0 F Pulse Rate 101 H 90 88 Respiratory Rate 18 Blood Pressure 147/100 H Pulse Oximetry 96 12/01/17 22:00 12/01/17 23:00 12/02/17 00:00 Temperature 98.5 F Pulse Rate 86 90 84 Respiratory Rate 18 Blood Pressure 143/77 H Pulse Oximetry 96 12/02/17 01:00 12/02/17 02:00 12/02/17 03:00 Temperature 98.1 F Pulse Rate 92 H 88 92 H Respiratory Rate 18 Blood Pressure 144/95 H Pulse Oximetry 97 12/02/17 04:00 12/02/17 05:00 12/02/17 06:00 Temperature Pulse Rate 94 H 98 H 95 H Respiratory Rate Blood Pressure Pulse Oximetry 12/02/17 07:00 12/02/17 08:00 12/02/17 09:00 Temperature 98.2 F Pulse Rate 102 H 93 H 98 H Respiratory Rate 18 Blood Pressure 155/100 H Pulse Oximetry 95 12/02/17 10:00 Temperature Pulse Rate 95 H Respiratory Rate Blood Pressure Pulse Oximetry Intake & Output 12/01/17 12/02/17 12/02/17 18:59 06:59 18:59 Intake Total 480 / 480 480 / 480 Output Total 1250 / 1250 700 / 700 Balance -770 / -770 -220 / -220 Weight 105.5 kg Intake: Oral 480 / 480 480 / 480 Output: Urine 1250 / 1250 700 / 700 Other: Date of Last Bowel Movement 12/01/17 # Bowel Movements 1 - Routine HEENT Exam Head: Present: normocephalic, atraumatic - Routine Neck Exam Present: supple, full ROM - Routine Respiratory Exam Present: CTA bilaterally - Routine Cardiovascular Exam Present: S1, S2 - Routine Extremities Exam Comments: no jose enrique Results 11/28/17 05:55 11/28/17 05:55 Lipids 12/02/17 Range/Units 03:27 Triglycerides 100 (42-150) mg/dL Cholesterol 183 (120-200) mg/dL HDL Cholesterol 27.7 L (40.0-60.0) mg/dL Cholesterol/HDL Ratio 6.60 Ratio Intake and Output 12/01/17 12/02/17 12/02/17 22:59 06:59 14:59 Intake Total 480 / 480 480 / 480 Output Total 1250 / 1250 700 / 700 Balance -770 / -770 -220 / -220 Intake: Oral 480 / 480 480 / 480 Output: Urine 1250 / 1250 700 / 700 Other: Date of Last Bowel Movement 12/01/17 # Bowel Movements 1 Weight 105.5 kg Assessment and Plan - Assessment (1) Unstable angina Code(s): I20.0 - Unstable angina Status: Acute (2) CAD (coronary artery disease) Code(s): I25.10 - Atherosclerotic heart disease of [place] coronary artery without angina pectoris Status: Acute (3) Cardiomyopathy Code(s): I42.9 - Cardiomyopathy, unspecified Status: Acute (4) Atrial fibrillation Code(s): I48.91 - Unspecified atrial fibrillation Status: Acute - Plan 1.) CAD - hold levi quinonez 12/03/17, d/w patient and his 12/02/17
[2017-12-03] MEDS: MethylPREDNISolone Sod Succinate Inj 40 MG/ML Vial IV.PUSH SCH ×2 (08:31→21:16)
[2017-12-03] MEDS: Sodium Chloride 0.9% 2 ML Flush BID IV.FLUSH SCH (08:32)
[2017-12-03] MEDS: dilTIAZem CD 120 MG Capsule PO SCH (08:32)
[2017-12-03] MEDS: Aspirin 325 MG Tablet PO SCH (08:32)
[2017-12-03 09:02] VITALS: RESP 16
--- NOTE | 2017-12-03 13:25 | P.PN ---
Subjective Interval history: This is a pleasant 67 y/o Male with CAD status post CABG, PCI 2017, who came to ER on 11/26/17 with chest pain with Diagnosis of Unstable Angina, Cardiomyopathy, CHF, Atrial fibrillation, EF 26%, large fixed defect in the inferior septum and inferior wall. Seen in his bedroom in the presence of his , a this time going for heart cath, found Severe 2 vessel coronary artery disease in a right dominant system, Patent graft to the obtuse marginal, Mid to moderate left ventricular systolic dysfunction with EF 40 to 45%, large inferior wall fixed defect, Severe diffuse disease in the mid to distal right coronary artery and mid right patent ductus arteriosus, CT surgery consult and possible redo CABG to the right PDA. Widely patent stent in the proximal LAD. Physical Exam Vital signs: Vital Signs 12/02/17 13:50 12/02/17 15:00 12/02/17 15:56 Temperature 97.7 F Pulse Rate 95 H 96 H 103 H Respiratory Rate 18 Blood Pressure 140/87 Pulse Oximetry 98 12/02/17 16:22 12/02/17 17:37 12/02/17 19:00 Temperature 98.0 F Pulse Rate 110 H 107 H 127 H Respiratory Rate 18 Blood Pressure 158/91 H Pulse Oximetry 97 12/02/17 20:00 12/02/17 21:00 12/02/17 22:00 Temperature Pulse Rate 110 H 118 H 104 H Respiratory Rate Blood Pressure Pulse Oximetry 12/02/17 23:00 12/03/17 00:00 12/03/17 01:00 Temperature 97.7 F Pulse Rate 86 96 H 96 H Respiratory Rate 18 Blood Pressure 135/90 Pulse Oximetry 96 12/03/17 02:00 12/03/17 03:00 12/03/17 04:00 Temperature 97.5 F L Pulse Rate 94 H 91 H 96 H Respiratory Rate 18 Blood Pressure 135/97 H Pulse Oximetry 93 L 12/03/17 05:00 12/03/17 06:00 12/03/17 07:00 Temperature 97.8 F Pulse Rate 99 H 110 H 78 Respiratory Rate 16 Blood Pressure 145/90 H Pulse Oximetry 97 12/03/17 08:00 12/03/17 09:00 12/03/17 10:00 Temperature Pulse Rate 78 84 92 H Respiratory Rate Blood Pressure Pulse Oximetry 12/03/17 11:00 12/03/17 12:00 12/03/17 13:00 Temperature 97.9 F Pulse Rate 96 H 99 H 94 H Respiratory Rate 16 Blood Pressure 156/92 H Pulse Oximetry 96 Intake & Output 12/02/17 12/03/17 12/03/17 18:59 06:59 18:59 Intake Total 720 / 720 590 / 590 Output Total 1000 / 1000 800 / 800 Balance -280 / -280 -210 / -210 Weight 104 kg Intake: Oral 720 / 720 590 / 590 Output: Urine 1000 / 1000 800 / 800 Other: Date of Last Bowel Movement 12/02/17 # Bowel Movements 1 Narrative: GENERAL: This is a well-nourished, well-developed patient, in no apparent distress. CARDIOVASCULAR: Regular rate and rhythm without murmurs, gallops, or rubs. RESPIRATORY: Clear to auscultation. Breath sounds equal bilaterally. No wheezes , rales, or rhonchi. GASTROINTESTINAL: Abdomen soft, non-tender, nondistended. Normal active bowel sounds MUSCULOSKELETAL: Extremities without clubbing, cyanosis, or edema. NEURO: Alert & Oriented x4 to person, place, time, situation. Moves all ext x4 Results - Labs CBC & Chem 7: 11/28/17 05:55 11/28/17 05:55 Microbiology 11/27/17 13:18 Blood - Peripheral Aerobic Blood Culture - Final No growth in 5 days 11/27/17 13:18 Blood - Peripheral Anaerobic Blood Culture - Final No growth in 5 days 11/27/17 13:18 Blood - Peripheral Aerobic Blood Culture - Final No growth in 5 days 11/27/17 13:18 Blood - Peripheral Anaerobic Blood Culture - Final No growth in 5 days Assessment and Plan - Assessment (1) Atypical chest pain Code(s): R07.89 - Other chest pain Status: Acute - Plan Unstable angina for Cardiac Cath today. History of CABG and cardiac stent placement as well as atrial fibrillation Systolic heart failure not in exacerbation Hypertension -Echocardiogram obtained and reviewed, showing EF of 35-40%. This is a change in comparison to the echo done in March of this year. Follow cardiac cath. -stopped lisinopril due to swollen lips -Status post heart cath, found Severe 2 vessel coronary artery disease in a right dominant system, Patent graft to the obtuse marginal, Mid to moderate left ventricular systolic dysfunction with EF 40 to 45%, large inferior wall fixed defect, Severe diffuse disease in the mid to distal right coronary artery and mid right patent ductus arteriosus, CT surgery consult and possible redo CABG to the right PDA. Widely patent stent in the proximal LAD. swollen lips- no wheezing on exam and looks comfortable otherwise stopped lisinopril- will continue Benadryl and will add IV Solumedrol- continue to monitor. Abdominal pain. resolved. -Patient presented with mild-abdominal pain. Bilirubin trend improving. -Patient did have previous abdominal pain and gallbladder workup earlier this year, although a cholecystectomy was deferred at that time and recommendations for outpatient follow up. Patient has been lost to outpatient follow up and has not see a GI specialist. -Gallbladder US showing sludge. No stones. - Morphine IV available for pain. Has not needed pain medication. -Tolerating PO intake well. Denies any abdominal pain, nausea or vomiting. -Will obtain cardiology input and ultimately patient will need cardiology clearance if surgery is needed in the future as well as recommendations in stopping antiplatelets. At this time patient's cardiac takes precedence. -Supportive care. splenic artery aneurysm; f/u as outpatient. DVT prophylaxis: SCDs. Eliquis and Plavix was held this morning for cardiac cath. Continue per cardiology recommendations. Code Status: Full code. Discussed Condition With: patient and his relatives in the room. Discharge Planning: once cleared by deaf/hard of hearing specialist.
[2017-12-03] MEDS ORDERED: fentaNYL Citrate Inj 100 MCG/2 ML Ampul ONE (14:40)
[2017-12-03] MEDS ORDERED: Heparin/NS PF Inj 1,000 ML ONE (14:40)
--- NOTE | 2017-12-03 15:33 | CATHPROC ---
[employer] HIS Report Study Information Study Number Admission Scheduled Start Study Start [id number] Nov 26 2017 6:40PM 12/03/2017 Dec 03 2017 2:28PM [place] Service Cath Endovascular Study Admit Source Facility Department Emergency department [facility] - [facility] Physician and Clinical Staff Initial Thom Lima Wide Piece Goods Inspector Ho Griffin RN Recorder Zara Nuñez,RT(R) (BS) Scrub AnthonyKrystal diaz,RT(R) Scrub Student, BODY WIRER/RT(R) Procedures Performed Procedure Location (Site) Vessel Name Coronary Angiograms LCA Left Coronary Coronary Angiograms RCA Right Coronary Coronary Angiograms SVG-MARG1 Left Coronary L Heart Cath LV Gram-hand inj. LV LV Ventricle Equipment Time Operating System Programmer Description Size Mfg Part Number Used/Scraped TRANSDUCER, TRUWAVE [id number] 14:30 ROSA SORENSON * Used W/STOCKCOCK *[id number] [id number] *[id number] [id number] *[id number] [id number] *[id number] [id number] *[id number] 14:30 [employer] BLANKET,WARM AIR CCL * Used *[id number] 14:30 [employer] PACK, CCL CUSTOM * Used *[id number] 14:30 Tripl PACER PEN, SKIN DUAL W/ RULER * Used *[id number] 14:30 BERD WIRE, 3MMJ .035 180CM 180CM Used *[id number] 14:30 NAMIC MANIFOLD, 4 PORT * Used *[id number] 14:30 NYCOMED OMNIPAQUE, 350 MG, 150ML 150ML [id number] 14:30 TERUMO MEDICAL SHEATH, FR4 TERUMO (10CM) FR 4 Used *[id number] History: Current Medications Medication Dosage/Unit Route Frequency Last Date/Time Taken Beta Itzel ASA PLAVIX ELIQUIS History: Allergies Allergy Reaction No Known Allergies NONE History: Risk Factors Family History of Hypertension Dyslipidemia Previous KS Previous Heart Failure Premature CAD Yes Yes Yes Yes No Prior Valve Prior PCI Prior PCIDate Prior CABG Prior CABGDate Surgery No Yes 03/29/2017 Yes 02/26/2013 Cerebrovascular Peripheral Artery Chronic Lung On Dialysis Diabetes Disease Disease Disease No No No No No History: Stress Tests Stress or Imaging Studies Performed No History: Arrhythmias Selection Items Atrial fibrillation History: Other Disease Selection Items CAD HTN History: Other Current Smoker No Labs Hgb (g/dl) Hct (%) WBC (l/cumm) Platelets (thousands) 11.60-17.00 35.00-51.00 4.00-11.00 150.00-450.00 14.9 43.4 6.3 136 Glucose (mg/dl) BUN (mg/dl) Creatinine (mg/dl) BUN:Creatinine (1:x) 74.00-106.00 7.00-18.00 0.50-1.30 10.00-20.00 94 8 0.7 11.4 Na (meq/l) K (meq/l) 136.00-145.00 3.50-5.10 139 3.4 CPK-MB (ng/ML) 0.50-3.60 Not Drawn Medication Medication Total Dose (Bolus/Oral) Medication Total Dosage/Unit 1% XYLOCAINE 20 mL Medications (Bolus/Oral) Medication Time Given Dosage/Unit Administered By Reason 1% XYLOCAINE 12/03/2017 2:56:22 PM 20 mL Thom Sanchez 20 mL 1% XYLOCAINE given in lab by Thom Sanchez in Right Groin via Subcutaneous. Medication (Drip) Medication Time Given Dosage/Unit Concentration/Unit Diluent (ml) Solution IV Solutions 12/03/2017 2:31:24 PM 0 mL (IV) 500 NaCl .9 IV Solutions given in lab by Ho Griffin, RN in Right Antecubital via Peripheral IV. Pump/Drip Flow = 30 ml/hr using NaCl .9. Initial Case Assessment Cardiovascular HR Rhythm NIBP Chest Pain 84 irr 141/91 0 Edema Present Skin color Skin None Normal Warm Dry Circulatory - Right Pulses Dorsalis Pedis Femoral 2 2 Scale (0,1,2,3,4,d) Circulatory - Left Pulses Dorsalis Pedis Femoral 2 2 Scale (0,1,2,3,4,d) Circulatory - Lower Extremities Color Lower Right Color Lower Left Normal Normal Neurological State Oriented to time-place- Alert Moves all extremities person Respiration - General Respiration Rate SpO2 (%) (B/min) 11 95 Chronological Log Time Study Chronological Log 14:30:33 Patient arrived via Bed. 14:30:34 Patient Name, D.O.B, / Armband Verified By R.N. 14:30:58 Consent signed by the physician and the patient and verified by the [facility] staff. 14:31:11 Pre-op and post- op instructions given; patient acknowledges understanding of instructions. 14:31:16 Presedation assessment performed by Wheel [facility]ider RN. 14:31:18 Patient has been NPO for More than 6Hrs. 14:31:19 Skin Breakdown none reported or observed 14:31:19 Patient Warmer Placed on the Table. 14:31:21 Bennie Prominences Protected 14:31:23 A # 20 IV was noted in the Antecubital (left). Grade = 0 IV Solutions given in lab by Ho Griffin, RN in Right Antecubital via Peripheral IV. Pump/Dri p Flow = 30 ml/hr using 14:31:24 NaCl .9. 14:31:25 History and physical on the chart or being dictated. Assessment: Initial Case, HR=84 BPM, Rhythm=irr, MJAV=000/91 mmhg, Chest Pain=0, Edema=None, Co antonella=Normal, Skin = Warm, Dry Right Pulses: Amandeep Ped=2, Femoral=2 Left Pulses: Amandeep Ped=2, Femoral=2 14:31:26 Lower Right Extremities: Color=Normal Lower Left Extremities: Color=Normal Neurological: State=Alert, Ox3, VALDEZ Respiration: Resp=11 B/min, SpO2=95 % 14:35:42 Reference ECG taken Vitals capture started with the following parameters, Patient=Adult, Interval=5 min, Initial Pr jkeucv=352 mmHg, 14:37:00 Deflation Rate=5 mmHg, Cuff placed on Left Arm 14:37:40 HR=84 bpm, HSHB=323/91 mmhg, SpO2=93.0 %, Resp=10 B/min, Pain=0, Radha=10, Boyer=2 14:42:10 Bilateral groins prepped with 2% chlorhexidine, and draped after a 3 minute waiting time. 14:42:39 PLQI=177/102 mmhg, SpO2=95.0 %, Resp=21 B/min, Pain=0, Radha=10, Boyer=2 14:47:42 HR=91 bpm, BULE=468/88 mmhg, SpO2=94.0 %, Resp=15 B/min, Pain=0, Radha=10, Boyer=2 14:49:26 Pressure channel 1 zeroed. 14:52:43 HR=97 bpm, IKTS=754/93 mmhg, SpO2=95.0 %, Resp=16 B/min, Pain=0, Radha=10, Boyer=2 Time Out. Correct patient, correct procedure, correct physician, labs, allergies, and equipment verified with laborer brooder farm 14:54:48 team present. Fire risk assesment completed (see hard stop sheet for coding). Time Out Conc urred by MD and individual staff in procedure. 14:55:20 Case Start 14:56:22 20 mL 1% XYLOCAINE given in lab by Thom Sanchez in Right Groin via Subcutaneous. 14:57:40 EL=221 bpm, SEHW=650/108 mmhg, SpO2=95.0 %, Resp=18 B/min, Pain=0, Radha=10, Boyer=2 14:59:04 Access site was Right Femoral Artery. 14:59:10 A SHEATH, FR4 TERUMO (10CM) FR 4 was advanced into the Fem Art (right) using the Percutaneo us technique. A JR 4.0 INFINITI CATHETER FR 4 was advanced over a wire. OMNIPAQUE, 350 MG, 150ML 150ML was us ed for 14:59:24 injections. Recorded Pressure: LV, HR=96, Condition=Condition 1 15:01:38 (Left Ventricle) LV 148/11/10 15:01:49 The LV was manually injected with 8 cc's and visualized. OMNIPAQUE, 350 MG, 150ML 150ML use d. Recorded Pressure: LV, Ao, HR=81, Condition=Condition 1 15:01:53 (Left Ventricle) LV 151/10/16, (Aorta) Ao 141/82/109 15:02:38 The RCA was injected and visualized at various angles. OMNIPAQUE, 350 MG, 150ML 150ML used . 15:02:45 VZ=655 bpm, UEXF=564/84 mmhg, SpO2=94.0 %, Resp=21 B/min, Pain=0, Radha=10, Boyer=2 15:03:07 Catheter was removed A JR 4.0 INFINITI CATHETER FR 4 was advanced over a wire. OMNIPAQUE, 350 MG, 150ML 150ML was us ed for 15:03:08 injections. 15:05:03 The SVG-MARG1 was injected and visualized at various angles. OMNIPAQUE, 350 MG, 150ML 150ML used. 15:06:37 Catheter was removed A JL 5.0 INFINITI CATHETER FR 4 was advanced over a wire. OMNIPAQUE, 350 MG, 150ML 150ML was us ed for 15:06:39 injections. 15:07:25 The LCA was injected and visualized at various angles. OMNIPAQUE, 350 MG, 150ML 150ML used . 15:07:42 HR=90 bpm, MUUW=743/96 mmhg, SpO2=95.0 %, Resp=19 B/min, Pain=0, Radha=10, Boyer=2 15:09:12 Catheter was removed 15:10:14 A LCB INFINITI FR 4 was advanced over a wire. OMNIPAQUE, 350 MG, 150ML 150ML was used for i njections. 15:12:41 GG=480 bpm, JVYD=509/100 mmhg, SpO2=97.0 %, Resp=17 B/min, Pain=0, Radha=10, Boyer=2 15:13:14 Catheter was removed 15:13:43 Case End (Physician broke scrub) 15:13:58 Catheter(s) removed without difficulty 15:14:05 No case complications noted. 15:14:09 Bedside Report will be given. 15:14:13 A Left Heart Cath was performed. 15:15:49 Sheath removed; pressure applied to access site. 15:17:42 HR=92 bpm, VRUQ=143/98 mmhg, SpO2=95.0 %, Resp=20 B/min, Pain=0, Radha=10, Boyer=2 15:22:41 HR=95 bpm, GJBB=227/104 mmhg, SpO2=96.0 %, Resp=17 B/min, Pain=0, Radha=10, Boyer=2 15:27:44 OS=753 bpm, CRDU=821/96 mmhg, SpO2=93.0 %, Resp=19 B/min, Pain=0, Radha=10, Boyer=2 15:28:53 Sterile dressing applied to site 15:29:44 Called [facility]. Spoke to Maryann. 15:32:21 Vitals capture stopped. 15:32:26 Patient moved to stretcher End Study - Contrast Media Used In Study Contrast Total Opened (mL) Total Used (mL) Total Wasted (mL) Omnipaque 70 70 0 End Study - Maximum Contrast Load Max Contrast Load (mL) 744.8 End Study - Radiation Exposure Fluoro Time (minutes) 4.3 End Study - Patient Disposition Complications Transferred To Interventional Outcome No Telemetry Bed No attempt made
--- NOTE | 2017-12-03 16:24 | MA ---
cc: Thom Sanchez MD DATE: 12/03/2017 PROCEDURE: Left heart catheterization, left ventriculography, coronary angiography, saphenous vein angiography. INDICATIONS FOR PROCEDURE: The patient was brought to the cardiac catheterization laboratory, prepped and draped in the usual sterile fashion. Then, 10 mL of 1% lidocaine were used to locally anesthetize the left femoral artery. A 4-Ukrainian sheath was placed in the right common femoral artery, and 4-Ukrainian JR4 and JL5 catheters were used for left and right coronary artery angiography, left ventriculography, and saphenous vein angiography. FINDINGS: LV pressure 150/10-15. Ejection fraction 40% to 45%. Right coronary artery is dominant, fibrocalcific fluoroscopically. Has a long segment of severe diffuse disease beginning just after the RV branch in the mid segment, extending into the mid to distal segment up to 95% angiographically. The right PDA has a mid 95% stenosis. Vein graft to the OM is suboptimally imaged, but appears to be widely patent. It is a known jump graft from OM1 to OM2. LLANOS to the LAD is noted to be occluded. Vein graft to the right is known to be occluded from previous catheterization several months ago. Left main coronary artery has no significant disease angiographically. The LAD has mild diffuse disease up to 20% angiographically in the proximal segment. Distal segment has sequential 95% lesions. At that segment, the LAD is a 1.5 mm vessel. LAD is transapical. Left circumflex vessel has mild diffuse disease in the proximal segment up to 20% angiographically. The first obtuse marginal vessel is a medium-sized vessel, reference vessel diameter of 3 mm. Mild to moderate diffuse disease in the proximal segment up to 30% to 40% angiographically. Second obtuse marginal vessel of medium size vessel, reference vessel diameter 3.0 mm. Mild disease in the mid segment up to 20% angiographically. The circ terminates into a codominant left PDA with no significant obstructive disease. CONCLUSION: 1. Angiographically, severe 2-vessel coronary artery disease in a right-dominant system as detailed above. 2. Patent graft to the obtuse marginal as detailed above. 3. Pqto-pz-upkyoaxg left ventricular systolic dysfunction with ejection fraction of 40% to 45%. 4. Large inferior wall fixed defect, possible culprit. 5. Severe diffuse disease in the mid to distal right coronary artery and mid right patent ductus arteriosus as detailed above. RECOMMENDATIONS: 1. Recommend CT surgery consultation for consideration of risks and benefits of a redo CABG to the right PDA. 2. Widely patent stent in the proximal LAD. 3. Otherwise continue medical management of coronary artery disease, cardiac risk factor modification. Thom Sanchez MD AWArvind/ , 03:18 PM , 03:27 PM
[2017-12-03 18:36] LABS: Calcium 8.9 mg/dL (8.5-10.1); Carbon Dioxide 26.2 meq/L (21.0-32.0); Magnesium 2.5 mg/dL (1.5-2.5); Phosphorus 3.9 mg/dL (2.5-4.9); Potassium 3.9 meq/L (3.5-5.1)
[2017-12-04] MEDS: MethylPREDNISolone Sod Succinate Inj 40 MG/ML Vial IV.PUSH SCH (08:12)
[2017-12-04] MEDS: Aspirin 325 MG Tablet PO SCH (08:13)
[2017-12-04] MEDS: dilTIAZem CD 120 MG Capsule PO SCH (08:13)
--- NOTE | 2017-12-04 08:34 | P.PN ---
Subjective Interval history: This is a pleasant 67 y/o Male with CAD status post CABG, PCI 2017, who came to ER on 11/26/17 with chest pain with Diagnosis of Unstable Angina, Cardiomyopathy, CHF, Atrial fibrillation, EF 26%, large fixed defect in the inferior septum and inferior wall. Seen in his bedroom in the presence of his , a this time going for heart cath, found Severe 2 vessel coronary artery disease in a right dominant system, Patent graft to the obtuse marginal, Mid to moderate left ventricular systolic dysfunction with EF 40 to 45%, large inferior wall fixed defect, Severe diffuse disease in the mid to distal right coronary artery and mid right patent ductus arteriosus, CT surgery consult and possible redo CABG to the right PDA. Widely patent stent in the proximal LAD. 12/04: Seen in his bedroom in the presence of his , no complaint awaiting recommendations by Cardiothoracic surgery, no nausea, vomit or diarrhea, denies any chest pain. wants to go home. Physical Exam Vital signs: Vital Signs 12/03/17 09:00 12/03/17 10:00 12/03/17 11:00 Temperature 97.9 F Pulse Rate 84 92 H 96 H Respiratory Rate 16 Blood Pressure 156/92 H Pulse Oximetry 96 12/03/17 12:00 12/03/17 13:00 12/03/17 14:00 Temperature Pulse Rate 99 H 94 H 95 H Respiratory Rate Blood Pressure Pulse Oximetry 12/03/17 16:00 12/03/17 17:00 12/03/17 18:00 Temperature Pulse Rate 93 H 82 99 H Respiratory Rate Blood Pressure Pulse Oximetry 12/03/17 19:00 12/03/17 20:00 12/03/17 21:00 Temperature 97.5 F L Pulse Rate 110 H 101 H 99 H Respiratory Rate 16 Blood Pressure 151/85 H Pulse Oximetry 96 12/03/17 22:00 12/03/17 23:00 12/04/17 00:00 Temperature 97.9 F Pulse Rate 100 H 93 H 89 Respiratory Rate 16 Blood Pressure 137/78 Pulse Oximetry 96 12/04/17 00:59 12/04/17 01:59 12/04/17 03:00 Temperature 97.9 F Pulse Rate 93 H 99 H 87 Respiratory Rate 16 Blood Pressure 136/96 H Pulse Oximetry 96 12/04/17 04:00 12/04/17 05:00 12/04/17 05:59 Temperature Pulse Rate 96 H 99 H 93 H Respiratory Rate Blood Pressure Pulse Oximetry 12/04/17 07:00 12/04/17 08:00 Temperature 98.0 F Pulse Rate 95 H 85 Respiratory Rate 16 Blood Pressure 141/86 H Pulse Oximetry 97 Intake & Output 12/03/17 12/04/17 12/04/17 18:59 06:59 18:59 Intake Total 750 / 750 240 / 240 Output Total 950 / 950 Balance -200 / -200 240 / 240 Weight 106 kg Intake: Oral 750 / 750 240 / 240 Output: Urine 950 / 950 Other: # Voids 1 Narrative: GENERAL: This is a well-nourished, well-developed patient, in no apparent distress. CARDIOVASCULAR: Regular rate and rhythm without murmurs, gallops, or rubs. RESPIRATORY: Clear to auscultation. Breath sounds equal bilaterally. No wheezes , rales, or rhonchi. GASTROINTESTINAL: Abdomen soft, non-tender, nondistended. Normal active bowel sounds MUSCULOSKELETAL: Extremities without clubbing, cyanosis, or edema. NEURO: Alert & Oriented x4 to person, place, time, situation. Moves all ext x4 Results - Labs CBC & Chem 7: 11/28/17 05:55 12/03/17 17:49 Laboratory Results - last 24 hr 12/03/17 17:49 Sodium 139 Potassium 3.9 Chloride 104 Carbon Dioxide 26.2 Anion Gap 9 BUN 15 Creatinine 0.89 Estimated GFR 85 L Random Glucose 179 H Calcium 8.9 Phosphorus 3.9 Magnesium 2.5 Assessment and Plan - Assessment (1) Atypical chest pain Code(s): R07.89 - Other chest pain Status: Acute - Plan Unstable angina for Cardiac Cath today. History of CABG and cardiac stent placement as well as atrial fibrillation Systolic heart failure not in exacerbation Hypertension -Echocardiogram obtained and reviewed, showing EF of 35-40%. This is a change in comparison to the echo done in March of this year. Follow cardiac cath. -stopped lisinopril due to swollen lips -Status post heart cath, found Severe 2 vessel coronary artery disease in a right dominant system, Patent graft to the obtuse marginal, Mid to moderate left ventricular systolic dysfunction with EF 40 to 45%, large inferior wall fixed defect, Severe diffuse disease in the mid to distal right coronary artery and mid right patent ductus arteriosus, CT surgery consult and possible redo CABG to the right PDA. Widely patent stent in the proximal LAD. Seen by Cardiothoracic plastic surgery technician, he has history of Cardiac Arrest, the risks outweigh the benefits. Recommendation is for maximizing medical therapy if possible. The patient also has a large inferior wall defect. Ejection fraction 40%, patent graft to the OM. Not recommended surgical Intervention also the Patient is Jehovah' s witness. swollen lips- no wheezing on exam and looks comfortable otherwise stopped lisinopril- will continue Benadryl and will add IV Solumedrol- continue to monitor. discontinue Solu-Medrol and Benadryl scheduled. Abdominal pain. resolved. -Patient presented with mild-abdominal pain. Bilirubin trend improving. -Patient did have previous abdominal pain and gallbladder workup earlier this year, although a cholecystectomy was deferred at that time and recommendations for outpatient follow up. Patient has been lost to outpatient follow up and has not see a GI specialist. -Gallbladder US showing sludge. No stones. - Morphine IV available for pain. Has not needed pain medication. -Tolerating PO intake well. Denies any abdominal pain, nausea or vomiting. -Will obtain cardiology input and ultimately patient will need cardiology clearance if surgery is needed in the future as well as recommendations in stopping antiplatelets. At this time patient's cardiac takes precedence. -Supportive care. splenic artery aneurysm; f/u as outpatient. DVT prophylaxis: SCDs. Eliquis and Plavix was held this morning for cardiac cath. Continue per cardiology recommendations. Code Status: Full Code. Discussed Condition With: Patient his in the room and Nurse Miss Hendrix Discharge Planning: once cleared by environmental air specialist.
--- NOTE | 2017-12-04 09:17 | P.PNCV ---
- Note Subjective/Hospital Course: pt seen and evaluated / full consult dictated sts discussed with pt high risk for redo sternotomy pt is Jehovah witness / EF 40% / small PDA RISK SCORES About the STS Risk Calculator Procedure: CAB Only Risk of Mortality: 2.559% Morbidity or Mortality: 17.928% Long Length of Stay: 7.094% Short Length of Stay: 38.888% Permanent Stroke: 0.57% Prolonged Ventilation: 14.137% DSW Infection: 0.62% Renal Failure: 2.962% Reoperation: 6.649% Objective: Vital Signs - 24 hr 12/03/17 09:00 12/03/17 10:00 12/03/17 11:00 Temperature 97.9 F Pulse Rate 84 92 H 96 H Respiratory Rate 16 Blood Pressure 156/92 H Pulse Oximetry 96 12/03/17 12:00 12/03/17 13:00 12/03/17 14:00 Temperature Pulse Rate 99 H 94 H 95 H Respiratory Rate Blood Pressure Pulse Oximetry 12/03/17 16:00 12/03/17 17:00 12/03/17 18:00 Temperature Pulse Rate 93 H 82 99 H Respiratory Rate Blood Pressure Pulse Oximetry 12/03/17 19:00 12/03/17 20:00 12/03/17 21:00 Temperature 97.5 F L Pulse Rate 110 H 101 H 99 H Respiratory Rate 16 Blood Pressure 151/85 H Pulse Oximetry 96 12/03/17 22:00 12/03/17 23:00 12/04/17 00:00 Temperature 97.9 F Pulse Rate 100 H 93 H 89 Respiratory Rate 16 Blood Pressure 137/78 Pulse Oximetry 96 12/04/17 00:59 12/04/17 01:59 12/04/17 03:00 Temperature 97.9 F Pulse Rate 93 H 99 H 87 Respiratory Rate 16 Blood Pressure 136/96 H Pulse Oximetry 96 12/04/17 04:00 12/04/17 05:00 12/04/17 05:59 Temperature Pulse Rate 96 H 99 H 93 H Respiratory Rate Blood Pressure Pulse Oximetry 12/04/17 07:00 12/04/17 08:00 Temperature 98.0 F Pulse Rate 95 H 85 Respiratory Rate 16 Blood Pressure 141/86 H Pulse Oximetry 97 Result Diagrams: 11/28/17 05:55 12/03/17 17:49 The patient is a Religion and will not take blood products which increases his risk of REDO CABG. He also has diffuse disease in the PDA which is the only distal target. I do not recommend surgical intervention at this time.
[2017-12-04 11:22] VITALS: BP 141/101; TEMP 98.2; O2SAT 95
--- NOTE | 2017-12-04 11:26 | MB ---
cc: Marisa Bryant MD DATE: 12/04/2017 HISTORY OF PRESENT ILLNESS: A 67-year-old male patient of Dr. Bauer, Dr. Thom Sanchez, who has history of coronary artery disease, prior coronary artery bypass grafting, who presented to the emergency room on 11/26/2017 with chest pain 8/9, had some nitro that did not do any work, did not help. He received some morphine, which ended his pain. He underwent a high-risk nuclear stress test at [facility] which had some dyskinesis in the septal wall, hypokinesis in the apex, large perfusion defect in the inferior septum and inferior wall with very small area of reversibility. The patient has history of coronary artery bypass grafting x4 in [facility], with left leg harvesting for graft. Prior to that, he had a history of a cardiac arrest. He had immediate stents placed and he was transferred to the larger facility in [place], [place]. He has since moved here in May 2016. He underwent a cardiac catheterization and had a direct PCI with bare metal stent of the mid LAD. The patient's films were reviewed. At that time, there was only a distal right PDA, which was collateralized. The patient had 2 of 4 grafts fail from the previous surgery. EF at that time was 40%. He had disease in the proximal mid PDA at that time. He was continued on Plavix, Eliquis, also aspirin and presented again with chest pain on this admission. Troponins were negative. He underwent repeat cardiac catheterization, which showed the LLANOS to the LAD occluded. The vein graft to the right is known to be occluded from previous catheterization. The right PDA had a 95% stenosis. The vein graft to the OM appeared widely patent. EF on this catheterization showed a 40% to 45%. The stent to the proximal LAD was widely patent. The patient's risk of mortality is 2.5 but does not include other factors. PAST MEDICAL HISTORY: Risk of mortality is 2.59, morbidity and mortality 17%. Coronary artery disease, chronic atrial fibrillation, cardiomyopathy with ejection fraction of 40%, history of prior cardiac arrest in 2013. Surgeries include coronary artery bypass graft x4. He has had also recent stent placement March, stent to the LAD. ALLERGIES: NO KNOWN ALLERGIES. CURRENT MEDICATIONS: Include: 1. Aspirin. 2. Eliquis. 3. Coreg. 4. Plavix. 5. Diltiazem. He has had a history of some gallbladder sludge in the past and abdominal pain. Also, enlarged fatty liver. Unclear whether or not he is tolerable to statins. FAMILY HISTORY: Father from heart disease, heavy smoker. Mother from an accident. SOCIAL HISTORY: The patient is , 2 children. No tobacco. Rare alcohol. He is a [employer]. REVIEW OF SYSTEMS: GENERAL: No night sweats, fever, heat and cold intolerance. SKIN: No psoriasis, itching or hives. HEENT: No blurred vision, hearing loss. RESPIRATORY: Mild shortness of breath. CARDIOVASCULAR: Positive for chest pain. No paroxysmal nocturnal dyspnea or orthopnea. GASTROINTESTINAL: Positive for recent abdominal pain. ENDOCRINOLOGY: No diabetes or hypothyroidism. PHYSICAL EXAMINATION: VITAL SIGNS: Blood pressure 140/80, heart rate of 85, afebrile. GENERAL: Awake, alert, no acute distress. HEENT: Head is normocephalic, atraumatic. Pupils equal and reactive. Oral mucosa pink, moist. NECK: Supple. No JVD. CARDIOVASCULAR: Sounds S1, S2, irregular rate and rhythm. No audible rubs or gallops. LUNGS: Clear to auscultation. No wheezes, rales or rhonchi. ABDOMEN: Soft, nontender. No masses or organomegaly. EXTREMITIES: No cyanosis, clubbing, or edema. LABORATORY DATA: Shows hemoglobin 14, hematocrit of 43. White cell count of 6.3, platelet count of 136,000. Sodium 139, potassium 3.9, BUN of 15, creatinine 0.89, glucose 117, 94, 179, AST 19, ALT 27, triglycerides 100, cholesterol 183, LDL 135, lipase 159. INR 1. Urinalysis is unremarkable. ASSESSMENT AND PLAN: This is a 67-year-old male with coronary artery disease with prior history of cardiac arrest. He has coronary artery bypass grafts x4 in [place], [place]. Patient has recent stent placed to the LAD. We were consulted regarding redo CABG to the right PDA. At this time, risks outweigh the benefits. Recommendation is for maximizing medical therapy if possible. The patient also has a large inferior wall defect. Ejection fraction 40%, patent graft to the OM. Further discussion and plan as per Dr. Marisa Bryant. Dictated by JAMAR Bolaños I have reviewed this patients cath films and ECHO as well as personally examined him and reviewed his medical records. I agree with the above assessment and plan. Risk of REDO CABG is fairly high in this Mormon and the only distal target is small and diffusely diseased. I do not recommend REDO CABG at this time. I will discuss with Dr. Sanchez. Marisa MD KHUSHBU Ken/asuncion/eduardo , 09:55 AM , 10:06 AM [email or web address]
--- NOTE | 2017-12-04 14:07 | P.DS ---
Date of admission: 11/26/17 18:40 Primary care physician: UNKNOWN Attending physician on discharge: Doe Braswell Anticipated date of discharge: 12/04/17 Brief History from admission: This is a 67-year-old male patient with a known medical history of atrial fibrillation on Eliquis who presented to the ED with complaints of chest pain. Patient states that yesterday while at rest he developed a midepigastric abdominal pain that radiated to his left side. He states that the pain lasted roughly an hour and given IV morphine in the ED. He is unable to characterize the pain, just states that the pain is the worst pain is ever had in his life. He does have an extensive cardiac history with CABG as well as cardiac stents. He states that his last stress test was over 10 years ago. A cardiac catheterization is noted in March of this year and at that time post bare- metal stent to the proximal mid LAD. Has been on Eliquis as well as Plavix for history of cardiac stents and atrial fibrillation. It should be noted at that time of hospitalization in March of this year he also complained of abdominal pain. A gallbladder ultrasound as well as a HIDA scan was done, at that time a cholecystectomy deferred by general surgery. Patient denies any recent fevers, chills, cough, headache, shortness of breath, nausea, vomiting, diarrhea or dysuria. He does follow with Dr. Kim, cardiology in the outpatient setting, states that he has recently been been on Losartan but has been discontinued due to recall. DS: Diagnosis - Discharge Diagnosis (1) Atypical chest pain Status: Acute (2) Unstable angina Status: Acute (3) CAD (coronary artery disease) Status: Acute (4) Cardiomyopathy Status: Acute (5) Atrial fibrillation Status: Acute DS: Summary Hospital Course: This is a pleasant 67 y/o Male with CAD status post CABG, PCI 2017, who came to ER on 11/26/17 with chest pain with Diagnosis of Unstable Angina, Cardiomyopathy, CHF, Atrial fibrillation, EF 26%, large fixed defect in the inferior septum and inferior wall. Seen in his bedroom in the presence of his , a this time going for heart cath, found Severe 2 vessel coronary artery disease in a right dominant system, Patent graft to the obtuse marginal, Mid to moderate left ventricular systolic dysfunction with EF 40 to 45%, large inferior wall fixed defect, Severe diffuse disease in the mid to distal right coronary artery and mid right patent ductus arteriosus, CT surgery consult and possible redo CABG to the right PDA. Widely patent stent in the proximal LAD. 12/04: Seen in his bedroom in the presence of his , no complaint awaiting recommendations by Cardiothoracic surgery, no nausea, vomit or diarrhea, denies any chest pain. wants to go home. Physical Exam Vital signs: Vital Signs 12/03/17 09:00 12/03/17 10:00 12/03/17 11:00 Temperature 97.9 F Pulse Rate 84 92 H 96 H Respiratory Rate 16 Blood Pressure 156/92 H Pulse Oximetry 96 12/03/17 12:00 12/03/17 13:00 12/03/17 14:00 Temperature Pulse Rate 99 H 94 H 95 H Respiratory Rate Blood Pressure Pulse Oximetry 12/03/17 16:00 12/03/17 17:00 12/03/17 18:00 Temperature Pulse Rate 93 H 82 99 H Respiratory Rate Blood Pressure Pulse Oximetry 12/03/17 19:00 12/03/17 20:00 12/03/17 21:00 Temperature 97.5 F L Pulse Rate 110 H 101 H 99 H Respiratory Rate 16 Blood Pressure 151/85 H Pulse Oximetry 96 12/03/17 22:00 12/03/17 23:00 12/04/17 00:00 Temperature 97.9 F Pulse Rate 100 H 93 H 89 Respiratory Rate 16 Blood Pressure 137/78 Pulse Oximetry 96 12/04/17 00:59 12/04/17 01:59 12/04/17 03:00 Temperature 97.9 F Pulse Rate 93 H 99 H 87 Respiratory Rate 16 Blood Pressure 136/96 H Pulse Oximetry 96 12/04/17 04:00 12/04/17 05:00 12/04/17 05:59 Temperature Pulse Rate 96 H 99 H 93 H Respiratory Rate Blood Pressure Pulse Oximetry 12/04/17 07:00 12/04/17 08:00 Temperature 98.0 F Pulse Rate 95 H 85 Respiratory Rate 16 Blood Pressure 141/86 H Pulse Oximetry 97 Intake & Output 12/03/17 12/04/17 12/04/17 18:59 06:59 18:59 Intake Total 750 / 750 240 / 240 Output Total 950 / 950 Balance -200 / -200 240 / 240 Weight 106 kg Intake: Oral 750 / 750 240 / 240 Output: Urine 950 / 950 Other: # Voids 1 Results - Labs CBC & Chem 7: 11/28/17 05:55 12/03/17 17:49 Laboratory Results - last 24 hr 12/03/17 17:49 Sodium 139 Potassium 3.9 Chloride 104 Carbon Dioxide 26.2 Anion Gap 9 BUN 15 Creatinine 0.89 Estimated GFR 85 L Random Glucose 179 H Calcium 8.9 Phosphorus 3.9 Magnesium 2.5 Assessment and Plan - Assessment (1) Atypical chest pain Code(s): R07.89 - Other chest pain Status: Acute - Plan Unstable angina for Cardiac Cath today. History of CABG and cardiac stent placement as well as atrial fibrillation Systolic heart failure not in exacerbation Hypertension -Echocardiogram obtained and reviewed, showing EF of 35-40%. This is a change in comparison to the echo done in March of this year. Follow cardiac cath. -stopped lisinopril due to swollen lips -Status post heart cath, found Severe 2 vessel coronary artery disease in a right dominant system, Patent graft to the obtuse marginal, Mid to moderate left ventricular systolic dysfunction with EF 40 to 45%, large inferior wall fixed defect, Severe diffuse disease in the mid to distal right coronary artery and mid right patent ductus arteriosus, CT surgery consult and possible redo CABG to the right PDA. Widely patent stent in the proximal LAD. Seen by Cardiothoracic ultrasound specialist, he has history of Cardiac Arrest, the risks outweigh the benefits. Recommendation is for maximizing medical therapy if possible. The patient also has a large inferior wall defect. Ejection fraction 40%, patent graft to the OM. Not recommended surgical Intervention also the Patient is Jehovah' s witness. swollen lips- no wheezing on exam and looks comfortable otherwise stopped lisinopril- will continue Benadryl and will add IV Solumedrol- continue to monitor. discontinue Solu-Medrol and Benadryl scheduled. Abdominal pain. resolved. -Patient presented with mild-abdominal pain. Bilirubin trend improving. -Patient did have previous abdominal pain and gallbladder workup earlier this year, although a cholecystectomy was deferred at that time and recommendations for outpatient follow up. Patient has been lost to outpatient follow up and has not see a GI specialist. -Gallbladder US showing sludge. No stones. - Morphine IV available for pain. Has not needed pain medication. -Tolerating PO intake well. Denies any abdominal pain, nausea or vomiting. -Will obtain cardiology input and ultimately patient will need cardiology clearance if surgery is needed in the future as well as recommendations in stopping antiplatelets. At this time patient's cardiac takes precedence. -Supportive care. splenic artery aneurysm; f/u as outpatient. DVT prophylaxis: SCDs. Eliquis and Plavix was held this morning for cardiac cath. Continue per cardiology recommendations. Code Status: Full Code. Discussed Condition With: Patient his in the room and Nurse Miss Hendrix Discharge Planning: once cleared by specialist employee labor relations. - Time Spent with Patient Total time spent providing and/or coordinating discharge services: Greater than 30 minutes - Quality: VTE Deep Vein Thrombosis/Pulmonary Embolism Present on Admission: No Exam Vital signs: Vital Signs 12/03/17 16:00 12/03/17 17:00 12/03/17 18:00 Temperature Pulse Rate 93 H 82 99 H Respiratory Rate Blood Pressure Pulse Oximetry 12/03/17 19:00 12/03/17 20:00 12/03/17 21:00 Temperature 97.5 F L Pulse Rate 110 H 101 H 99 H Respiratory Rate 16 Blood Pressure 151/85 H Pulse Oximetry 96 12/03/17 22:00 12/03/17 23:00 12/04/17 00:00 Temperature 97.9 F Pulse Rate 100 H 93 H 89 Respiratory Rate 16 Blood Pressure 137/78 Pulse Oximetry 96 12/04/17 00:59 12/04/17 01:59 12/04/17 03:00 Temperature 97.9 F Pulse Rate 93 H 99 H 87 Respiratory Rate 16 Blood Pressure 136/96 H Pulse Oximetry 96 12/04/17 04:00 12/04/17 05:00 12/04/17 05:59 Temperature Pulse Rate 96 H 99 H 93 H Respiratory Rate Blood Pressure Pulse Oximetry 12/04/17 07:00 12/04/17 08:00 12/04/17 09:00 Temperature 98.0 F Pulse Rate 95 H 85 93 H Respiratory Rate 16 Blood Pressure 141/86 H Pulse Oximetry 97 12/04/17 10:00 12/04/17 11:00 12/04/17 12:00 Temperature 98.2 F Pulse Rate 94 H 89 88 Respiratory Rate 16 Blood Pressure 141/101 H Pulse Oximetry 95 12/04/17 13:00 Temperature Pulse Rate 95 H Respiratory Rate Blood Pressure Pulse Oximetry Intake & Output 12/03/17 12/04/17 12/04/17 18:59 06:59 18:59 Intake Total 750 / 750 240 / 240 Output Total 950 / 950 Balance -200 / -200 240 / 240 Weight 106 kg Intake: Oral 750 / 750 240 / 240 Output: Urine 950 / 950 Other: # Voids 1 Narrative: GENERAL: This is a well-nourished, well-developed patient, in no apparent distress. CARDIOVASCULAR: Regular rate and rhythm without murmurs, gallops, or rubs. RESPIRATORY: Clear to auscultation. Breath sounds equal bilaterally. No wheezes , rales, or rhonchi. GASTROINTESTINAL: Abdomen soft, non-tender, nondistended. Normal active bowel sounds MUSCULOSKELETAL: Extremities without clubbing, cyanosis, or edema. NEURO: Alert & Oriented x4 to person, place, time, situation. Moves all ext x4 Results Procedures completed during hospitalization: Status post heart cath, found Severe 2 vessel coronary artery disease in a right dominant system, Patent graft to the obtuse marginal, Mid to moderate left ventricular systolic dysfunction with EF 40 to 45%, large inferior wall fixed defect, Severe diffuse disease in the mid to distal right coronary artery and mid right patent ductus arteriosus. Labs on day of discharge: Labs from last 24 hours 12/03/17 17:49 Sodium 139 Potassium 3.9 Chloride 104 Carbon Dioxide 26.2 Anion Gap 9 BUN 15 Creatinine 0.89 Estimated GFR 85 L Random Glucose 179 H Calcium 8.9 Phosphorus 3.9 Magnesium 2.5 - Impressions ITS Impressions Abdomen/Pelvis CT 11/27/17 00:00 CONCLUSION: 1. Mild hepatomegaly. 2. No obstruction or acute inflammatory changes. 3. 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 Follow-up noncontrast abdomen CT recommended in one year. Gallbladder Ultrasound 11/27/17 00:00 CONCLUSION: 1. Gallbladder sludge. 2. Enlarged fatty liver. 3. Right renal cysts. 4. Poor visualization of the pancreas due to shadowing bowel gas. Myocardial Perfusion Scan Nuc Med 11/27/17 00:00 CONCLUSION: 1. Calculated ejection fraction of 26% with dyskinesis involving the septal wall and hypokinesis involving the apex. 2. Moderate to large predominantly fixed perfusion defect involving the inferior septum and inferior wall with small area of reversibility. Chest X-Ray 11/28/17 15:38 CONCLUSION: Cardiomegaly with previous CABG and increase in pulmonary vascularity/ interstitial densities. No change. Discharge Plan - Discharge Disposition Patient Disposition: 01 Discharge Home - Discharge Condition Condition: Stable - Discharge Order Discharge Orders: Discharge Order (Routine); Ordered 12/04/17 Ordered By: Doe Braswell - Discharge Details Anticipated Discharge Date: 12/04/17 Discharge Comment: Follow up with his own specialist employee labor relations three days after discharge. - Physicians Team Primary Care Provider: UNKNOWN, Attending Provider: Doe Braswell Other Providers: [employer],Insurance ; Thom Sanchez MD ; Marisa Bryant MD
[2017-12-04 14:14] VITALS: PULSE 86
--- NOTE | 2017-12-04 20:05 | P.PNCA ---
Subjective Interval history: assymptomatic in nad Medications and Allergies Active Medications: Active Medications Acetaminophen (Tylenol) 650 mg PO Q4H PRN PRN Reason: HEADACHE OR TEMP > 101 F Last Admin: 12/01/17 04:14 Dose: 650 mg Al Hydroxide/Mg Hydroxide (Milk Of Santiago Brown) 30 ml PO Q12H PRN PRN Reason: Mild Constipation Last Admin: 11/28/17 20:19 Dose: 30 ml Aspirin (Aspirin) 325 mg PO DAILY ON LICENSE OF [facility] Last Admin: 12/04/17 08:13 Dose: 325 mg Carvedilol (Coreg) 3.125 mg PO BID ON LICENSE OF [facility] Last Admin: 12/04/17 08:13 Dose: 3.125 mg Clopidogrel Bisulfate (Plavix) 75 mg PO DAILY ON LICENSE OF [facility] Last Admin: 11/29/17 08:11 Dose: Not Given Diltiazem HCl (Cardizem Cd 24hr) 120 mg PO DAILY ON LICENSE OF [facility] Last Admin: 12/04/17 08:13 Dose: 120 mg Miscellaneous (Pill Splitter) 1 each OTHER UNSCH ON LICENSE OF [facility] Last Admin: 11/26/17 21:09 Dose: 1 each Nitroglycerin (Nitrostat Sl) 0.4 mg SL Q5M PRN PRN Reason: CHEST PAIN Ondansetron HCl (Zofran Inj) 4 mg IV.PUSH Q6H PRN PRN Reason: NAUSEA OR VOMITING Sodium Chloride (Ns Flush) 2 ml IV.FLUSH BID ON LICENSE OF [facility] Last Admin: 12/04/17 08:13 Dose: 2 ml Sodium Chloride (Ns Flush) 2 ml IV.FLUSH PRN PRN PRN Reason: FLUSH AFTER USING IV ACCESS Allergies Allergy/AdvReac Type Severity Reaction Status Date / Time No Known Allergies Allergy Unknown NONE Uncoded 11/26/17 17:36 Home Medications Medication Instructions Recorded Confirmed Type apixaban [Eliquis] 2.5 mg PO BID 09/05/17 11/26/17 History aspirin [Aspir-81] 81 mg PO DAILY 11/26/17 11/26/17 History carvedilol 3.125 mg PO BID 11/26/17 11/26/17 History clopidogrel [Plavix] 75 mg PO DAILY 11/26/17 11/26/17 History diltiazem HCl 120 mg PO DAILY 11/26/17 11/26/17 History Physical Exam Vital signs: Vital Signs 12/03/17 21:00 12/03/17 22:00 12/03/17 23:00 Temperature 97.9 F Pulse Rate 99 H 100 H 93 H Respiratory Rate 16 Blood Pressure 137/78 Pulse Oximetry 96 12/04/17 00:00 12/04/17 00:59 12/04/17 01:59 Temperature Pulse Rate 89 93 H 99 H Respiratory Rate Blood Pressure Pulse Oximetry 12/04/17 03:00 12/04/17 04:00 12/04/17 05:00 Temperature 97.9 F Pulse Rate 87 96 H 99 H Respiratory Rate 16 Blood Pressure 136/96 H Pulse Oximetry 96 12/04/17 05:59 12/04/17 07:00 12/04/17 08:00 Temperature 98.0 F Pulse Rate 93 H 95 H 85 Respiratory Rate 16 Blood Pressure 141/86 H Pulse Oximetry 97 12/04/17 09:00 12/04/17 10:00 12/04/17 11:00 Temperature 98.2 F Pulse Rate 93 H 94 H 89 Respiratory Rate 16 Blood Pressure 141/101 H Pulse Oximetry 95 12/04/17 12:00 12/04/17 13:00 12/04/17 14:00 Temperature Pulse Rate 88 95 H 86 Respiratory Rate Blood Pressure Pulse Oximetry Intake & Output 12/04/17 12/04/17 12/05/17 06:59 18:59 06:59 Intake Total 240 / 240 Balance 240 / 240 Weight 106 kg Intake: Oral 240 / 240 Other: # Voids 1 - Constitutional no acute distress - Routine HEENT Exam Head: Present: normocephalic, atraumatic - Routine Neck Exam Present: supple, full ROM - Routine Respiratory Exam Present: CTA bilaterally - Routine Cardiovascular Exam Present: S1, S2 - Routine Abdominal Exam Present: soft - Routine Extremities Exam Comments: no jose enrique Results 11/28/17 05:55 12/03/17 17:49 Comprehensive Metabolic Panel 12/03/17 Range/Units 17:49 Sodium 139 (136-145) meq/L Potassium 3.9 (3.5-5.1) meq/L Chloride 104 (98-107) meq/L Carbon Dioxide 26.2 (21.0-32.0) meq/L BUN 15 (7-18) mg/dL Creatinine 0.89 (0.60-1.30) mg/dL Calcium 8.9 (8.5-10.1) mg/dL Intake and Output 12/04/17 12/04/17 12/04/17 06:59 14:59 22:59 Intake Total 240 / 240 Balance 240 / 240 Intake: Oral 240 / 240 Other: # Voids 1 Weight 106 kg Assessment and Plan - Assessment (1) Unstable angina Code(s): I20.0 - Unstable angina Status: Acute (2) CAD (coronary artery disease) Code(s): I25.10 - Atherosclerotic heart disease of [place] coronary artery without angina pectoris Status: Acute (3) Cardiomyopathy Code(s): I42.9 - Cardiomyopathy, unspecified Status: Acute (4) Atrial fibrillation Code(s): I48.91 - Unspecified atrial fibrillation Status: Acute - Plan 1.) CAD - restart devi ct surg rec medical management, i advised patient to f/u shivani with his in network [facility] hand i blocker, he understands
== END 2017-12-04 14:26 | disposition home or self-care (01) ==
LOC: PHED 17:23 → PHEDA 18:40 → PH3 23:30 → HCPC 11-29 09:02
PROVIDERS: ADMIT Internal Medicine; ATTEND Internal Medicine